=== PATIENT | female | born 1945 | race Asian ===

== ENCOUNTER 2017-03-23 19:17 | Inpatient (IN) | payer MEDICARE, OTHER ==
[~2017-03-23] VITALS: Ht 162.6 cm; Wt 104.3 kg
[~2017-03-23 19:17] MED LIST: AMIODARONE HCL200 MG ORAL; ASPIRIN EC81 MG ORAL; CARVEDILOL6.25 MG ORAL; CELEBREX200 MG ORAL; COREG3.125 MG ORAL; COZAAR50 MG ORAL; CRESTOR10 M2 ORAL; DOXAZOSIN MESYLA4 MG ORAL; ISOSORBIDE MONO30 M1 PO; JANUVIA25 MG ORAL; KEFLEX500 MG ORAL; LASIX40 MG ORAL; LEVOTHYROXINE100 MCG ORAL; LEVOTHYROXINE112 MCG ORAL; NEXIUM40 MG ORAL; NORVASC10 MG ORAL; NORVASC5 MG ORAL; OMEPRAZOLE20 M2 ORAL; PLAVIX75 MG ORAL; RENA-VITE TABL0.8 M1 PO; SINGULAIR10 MG ORAL; TRAMADOL HCL50 MG ORAL
[2017-03-24] MEDS ORDERED: Nitroglycerin Subl 0.4mg tab SL PRN (00:30)
[2017-03-24 00:53] VITALS: BP 144/62
[2017-03-24 04:30] VITALS: BP 149/69
[2017-03-24] MEDS: sitaGLIPtin 25mg tab ORAL SCH (06:20)
[2017-03-24] MEDS: Calcium Acetate 667mg Tab ORAL SCH ×3 (06:20→17:20)
[2017-03-24] MEDS: NovoLOG Insulin Flexpen SUBQ SCH ×4 (06:21→21:00)
[2017-03-24 08:00] VITALS: BP 152/60
[2017-03-24 08:13] LABS: BASOPHILS % (AUTO) 1.7 % (0.0-2.0); EOSINOPHILS % (AUTO) 3.9 % (0.0-3.0); HEMATOCRIT 32.4 % (37.0-47.0); HEMOGLOBIN 10.4 G/DL (12.0-16.0); LYMPHOCYTES % (AUTO) 19.2 % (20.0-45.0); MEAN CORPUSCULAR VOLUME 104 FL (80-99); MONOCYTES % (AUTO) 11.8 % (1.0-10.0); NEUTROPHILS % (AUTO) 63.4 % (45.0-75.0); PLATELET COUNT 139 K/UL (150-450); RED BLOOD COUNT 3.12 M/UL (4.20-5.40); RED CELL DISTRIBUTION WIDTH 14.1 % (11.6-14.8); WHITE BLOOD COUNT 6.6 K/UL (4.8-10.8)
[2017-03-24] MEDS: Aspirin Baby 81mg ORAL SCH (08:28)
[2017-03-24] MEDS: Amiodarone 200mg tab ORAL SCH ×2 (08:28→20:39)
[2017-03-24] MEDS ORDERED: Pantoprazole Inj IVP SCH (09:00)
[2017-03-24] MEDS ORDERED: Doxazosin 4mg tab ORAL SCH (09:00)
[2017-03-24 09:10] LABS: ANION GAP 14 mmol/L (5-15); BLOOD UREA NITROGEN 42 mg/dL (7-18); CALCIUM 8.8 MG/DL (8.5-10.1); CARBON DIOXIDE 24 MMOL/L (21-32); CHLORIDE 101 MMOL/L (98-107); CREATININE 7.7 MG/DL (0.55-1.30); PHOSPHORUS 3.7 MG/DL (2.5-4.9); POTASSIUM 4.7 MMOL/L (3.5-5.1); SODIUM 139 MMOL/L (136-145)
[2017-03-24] MEDS: Heparin 5000 units/ml inj SUBQ SCH ×2 (09:18→20:47)
[2017-03-24 11:42] VITALS: BP 140/56
--- NOTE | 2017-03-24 12:48 | Consultation ---
History of Present Illness General Date patient seen: Mar 24, 2017 Chief Complaint: dypsnea Referring physician: Dr. Poe Reason for Consultation: inpatient managemnt Present Illness HPI 71 year old female with hx of ESRF on HD, DM type 2 HTN, Hypothyroid was taken [facility] with CC of GLF at home, She had some chest pain and shortness of breath prior to fall, Her HD was due yesterday. She was hyperkalemic and bradycardic. After initial treatment she is transferred to [facility] for further treatment. She is awake now, doesn't seem to be in any discomfort. Allergies: Coded Allergies: No Known Allergies (Unverified , 12/11/14) Medication History Scheduled Amiodarone Hcl* (Cordarone*), 200 MG ORAL DAILY, (Reported) Amlodipine Besylate (Norvasc), 5 MG ORAL DAILY, (Reported) Aspirin Ec* (Aspirin Ec*), 81 MG ORAL DAILY, (Reported) Carvedilol (Coreg), 12.5 MG ORAL EVERY 12 HOURS Celecoxib* (Celebrex*), 200 MG ORAL DAILY, (Reported) Clopidogrel Bisulfate* (Plavix*), 75 MG ORAL DAILY, (Reported) Doxazosin Mesylate* (Doxazosin Mesylate*), 4 MG ORAL DAILY, (Reported) Esomeprazole Magnesium (Nexium), 40 MG ORAL DAILY, (Reported) Levothyroxine Sodium* (Levothyroxine Sodium*), 100 MCG ORAL DAILY, (Reported) Montelukast Sodium* (Singulair*), 10 MG ORAL DAILY, (Reported) Omeprazole (Omeprazole), 20 MG ORAL DAILY, (Reported) Rosuvastatin Calcium* (Crestor*), 10 MG ORAL DAILY, (Reported) Sitagliptin* (Januvia*), 25 MG ORAL DAILY, (Reported) Discontinued Medications Amlodipine Besylate (Norvasc), 10 MG ORAL DAILY Discontinued Reason: Pt stopped taking med Cephalexin* (Keflex*), 500 MG ORAL EVERY 6 HOURS, (Reported) Discontinued Reason: Pt stopped taking med Folic Acid/Vitamin B Comp W-C (Bethany-Karolyn Tablet), 0.8 MG PO, (Reported) Discontinued Reason: Pt stopped taking med Furosemide* (Lasix*), 40 MG ORAL DAILY, (Reported) Discontinued Reason: Pt stopped taking med Isosorbide Mononitrate (Isosorbide Mononitrate Er), 30 MG PO, (Reported) Discontinued Reason: Pt stopped taking med Levothyroxine Sodium* (Levothyroxine Sodium*), 112 MCG ORAL DAILY@0730 Discontinued Reason: Pt stopped taking med Losartan Potassium* (Cozaar*), 50 MG ORAL DAILY Discontinued Reason: Pt stopped taking med Tramadol Hcl* (Ultram*), 50 MG ORAL Q6H PRN for For Pain, (Reported) Discontinued Reason: Pt stopped taking med Patient History Healthcare decision maker Resuscitation status Full Code Advanced Directive on File Past Medical/Surgical History Past Medical/Surgical History: (1) Hypothyroidism (2) ESRD (end stage renal disease) on dialysis Review of Systems Constitutional: Reports: fever, malaise Respiratory: Reports: shortness of breath, ASKEW All Other Systems: negative except mentioned in HPI Physical Exam General Appearance: WD/WN, alert Lines, tubes and drains: peripheral, trach HEENT: atraumatic, mucous membranes moist Neck: non-tender, normal alignment Respiratory/Chest: chest wall non-tender, lungs clear Breasts: no masses Cardiovascular/Chest: normal peripheral pulses Abdomen: normal bowel sounds, non tender Genitourinary/Rectal: normal genital exam Extremities: normal range of motion Skin Exam: normal pigmentation 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 Last 24 Hour Vital Signs Date Time Temp Pulse Resp B/P (MAP) Pulse Ox O2 Delivery O2 Flow Rate FiO2 03/24/17 11:42 96.9 62 18 140/56 93 Room Air 03/24/17 08:28 58 152/60 03/24/17 08:00 61 03/24/17 08:00 96.7 58 18 152/60 94 Room Air 03/24/17 04:30 97.9 63 20 149/69 98 Room Air 03/24/17 04:00 62 03/24/17 00:53 97.7 65 20 144/62 97 Room Air 03/24/17 00:13 62 Intake and Output 03/23/17 03/24/17 19:00 07:00 Intake Total 200 ml Balance 200 ml Intake Oral 200 ml Laboratory Tests Test 03/24/17 06:50 White Blood Count 6.6 K/UL (4.8-10.8) Red Blood Count 3.12 M/UL (4.20-5.40) L Hemoglobin 10.4 G/DL (12.0-16.0) L Hematocrit 32.4 % (37.0-47.0) L Mean Corpuscular Volume 104 FL (80-99) H Mean Corpuscular Hemoglobin 33.3 PG (27.0-31.0) H Mean Corpuscular Hemoglobin Concent 32.0 G/DL (32.0-36.0) Red Cell Distribution Width 14.1 % (11.6-14.8) Platelet Count 139 K/UL (150-450) L Mean Platelet Volume 7.8 FL (6.5-10.1) Neutrophils (%) (Auto) 63.4 % (45.0-75.0) Lymphocytes (%) (Auto) 19.2 % (20.0-45.0) L Monocytes (%) (Auto) 11.8 % (1.0-10.0) H Eosinophils (%) (Auto) 3.9 % (0.0-3.0) H Basophils (%) (Auto) 1.7 % (0.0-2.0) Sodium Level 139 MMOL/L (136-145) Potassium Level 4.7 MMOL/L (3.5-5.1) Chloride Level 101 MMOL/L (98-107) Carbon Dioxide Level 24 MMOL/L (21-32) Anion Gap 14 mmol/L (5-15) Blood Urea Nitrogen 42 mg/dL (7-18) H Creatinine 7.7 MG/DL (0.55-1.30) H Estimat Glomerular Filtration Rate mL/min (>60) Glucose Level 188 MG/DL (74-106) H Calcium Level 8.8 MG/DL (8.5-10.1) Phosphorus Level 3.7 MG/DL (2.5-4.9) Magnesium Level 2.1 MG/DL (1.8-2.4) Height (Feet): 5 Height (Inches): 4.00 Weight (Pounds): 230 Medications Current Medications Medications (Trade) Dose Ordered Sig/Angelo Route PRN Reason Start Time Stop Time Status Last Admin Dose Admin Acetaminophen (Tylenol) 650 mg Q4H PRN ORAL Mild Pain/Temp > 100.5 03/24/17 00:30 04/23/17 00:29 Amiodarone HCl (Cordarone) 100 mg EVERY 12 HOURS ORAL 03/24/17 09:00 04/23/17 08:59 03/24/17 08:28 Amlodipine Besylate (Norvasc) 5 mg DAILY ORAL 03/24/17 09:00 04/23/17 08:59 03/24/17 08:28 Aspirin (ASA) 81 mg DAILY ORAL 03/24/17 09:00 04/23/17 08:59 03/24/17 08:28 Calcium Acetate (Phoslo) 667 mg TIAC ORAL 03/24/17 06:30 04/23/17 06:29 03/24/17 11:39 Clopidogrel Bisulfate (Plavix) 75 mg DAILY ORAL 03/24/17 09:00 04/23/17 08:59 03/24/17 08:28 Dextrose (Dextrose 50%) STAT PRN IV Hypoglycemia 03/24/17 00:30 04/23/17 00:29 Doxazosin Mesylate (Cardura) 4 mg DAILY ORAL 03/24/17 09:00 04/23/17 08:59 03/24/17 08:28 Heparin Sodium (Porcine) (Heparin 5000 units/ml) 5,000 units EVERY 12 HOURS SUBQ 03/24/17 09:00 04/23/17 08:59 03/24/17 09:18 Insulin Aspart (NovoLOG) BEFORE MEALS AND HS SUBQ 03/24/17 06:30 04/23/17 06:29 03/24/17 06:21 Levothyroxine Sodium (Synthroid) 100 mcg DAILY@0630 ORAL 03/24/17 06:30 04/23/17 06:29 03/24/17 06:20 Lidocaine (Lidoderm 5% PATCH) 1 patch Q12HR TDERMAL 03/24/17 09:00 04/23/17 08:59 03/24/17 08:29 Montelukast Sodium (Singulair) 10 mg QPM ORAL 03/24/17 16:30 04/23/17 16:29 Nitroglycerin (Ntg) 0.4 mg Q5M PRN SL Prn Chest Pain 03/24/17 00:30 04/23/17 00:29 Ondansetron HCl (Zofran) 4 mg Q4H PRN IVP Nausea & Vomiting 03/24/17 00:30 04/23/17 00:29 Pantoprazole (Protonix) 40 mg DAILY ORAL 03/24/17 09:00 04/23/17 08:59 03/24/17 08:28 Sevelamer Carbonate (Renvela) 800 mg TID@0630,1130,1630 ORAL 03/24/17 06:30 04/23/17 06:29 03/24/17 11:39 Sitagliptin Phosphate (Januvia) 25 mg ACBREAKFAST ORAL 03/24/17 06:30 04/23/17 06:29 03/24/17 06:20 Assessment/Plan Problem List: (1) Bradycardia ICD Codes: R00.1 - Bradycardia, unspecified SNOMED: 04123132 (2) Hyperkalemia ICD Codes: E87.5 - Hyperkalemia SNOMED: 38240718 (3) CHF exacerbation ICD Codes: I50.9 - Heart failure, unspecified SNOMED: 84069636 (4) ESRD (end stage renal disease) on dialysis ICD Codes: N18.6 - End stage renal disease; Z99.2 - Dependence on renal dialysis SNOMED: 608499533 (5) Hypothyroidism ICD Codes: E03.9 - Hypothyroidism, unspecified SNOMED: 91774414 Assessment/Plan respiratory treatment titrate fio2 check electrolytes Nephro evaluation check T3, T4 cxr now echo cardiac evaluation LEONARDO AARON Mar 24, 2017 12:48
--- NOTE | 2017-03-24 14:44 | Consultation ---
Consult Note Consult Note ASKED TO EVAL FOR DIALYSIS TREATMENT- transfered after dialysed in [place] for high K and bradycardia ESRD on HD for 2 years Tue [place] Sat Has left chest permacath poor historian patient examined- data reviewed history via Lithuanian translater . Assessment/Plan Following problems resolved after HD at [place] - Bradycardia - Hyperkalemia - CHF exacerbation Other Conditions: - ESRD (end stage renal disease) on dialysis - Hypothyroidism - Obese - DM - HTN - Anemia - PAF Assessment/Plan respiratory treatment titrate fio2 check electrolytes HD as needed cxr echo cardiac evaluation per orders KEKE ESPAÑA Mar 24, 2017 14:44
--- NOTE | 2017-03-24 14:56 | Cardiology Report ---
APPROVED REPORT EXAM: Two-dimensional and M-mode echocardiogram with Doppler and color Doppler. INDICATION Bradycardia M-Mode DIMENSIONS IVSd1.2 (0.7-1.1cm)Left Atrium (MM)5.1 (1.6-4.0cm) LVDd5.0 (3.5-5.6cm)Aortic Root2.7 (2.0-3.7cm) PWd1.1 (0.7-1.1cm)Aortic Cusp Exc.1.3 (1.5-2.0cm) LVDs2.9 (2.5-4.0cm) PWs1.5 cm Technically difficult study due to poor acoustical windows. Normal left ventricular chamber size, systolic function and wall motion. Left ventricular ejection fraction estimated to be 60-65%. No evidence of left ventricular hypertrophy. No evidence of pericardial or pleural effusion. Right cardiac chamber sizes are within normal limits. Mild left atrial enlargement by 2D. Focal aortic valve sclerosis with adequate cusp excursion. Thickened mitral valve leaflets with normal excursion. Mild mitral annulus and aortic root calcification. Pulmonic valve not well visualized. Normal tricuspid valve structure. IVC is normal in size and collapsible with respiration. A color flow and spectral Doppler study was performed and revealed: Moderate aortic regurgitation. Peak aortic valve gradient of 35mmHg and a mean of 21mmHg. Aortic valve area 1.9 cm2 calculated by continuity equation. Trace mitral regurgitation. Normal mitral diastolic function. Mild tricuspid regurgitation. Tricuspid systolic velocities suggests peak right ventricular systolic pressure of 40mmHg Consistent with mild pulmonary hypertension.
[2017-03-24 15:41] VITALS: BP 135/60
--- NOTE | 2017-03-24 15:44 | Diagnostic Imaging Report ---
Indication: Pain Technique: XRAY Chest 1v Comparison: 12/11/2014 Findings: Left-sided tunneled dialysis catheter has its tip in the region of the right atrium. Left sided vascular stent again noted. Stable cardiomegaly. Mild central pulmonary vascular congestion. There is no definite focal airspace consolidation. No pleural effusion or pneumothorax. No acute bony lesion seen. Impression: Cardiomegaly with mild central pulmonary vascular congestion. No definite focal airspace consolidation. Tunneled dialysis catheter in place.
[2017-03-24] MEDS: Docusate 100mg cap ORAL SCH (17:20)
[2017-03-24] MEDS: Montelukast 10mg tablet ORAL SCH (17:20)
[2017-03-24 20:00] VITALS: BP 148/54
[2017-03-24] MEDS: HydrALAZINE 25mg tab ORAL SCH (20:42)
[2017-03-24] MEDS: Atorvastatin 20mg tab ORAL SCH (20:50)
[2017-03-25] VITALS (8 sets, daily range): BP systolic 117–182; BP diastolic 51–75
--- NOTE | 2017-03-25 00:45 | History and Physical Report ---
DATE OF ADMISSION: 03/23/2017 CHIEF COMPLAINT: The patient is a 71-year-old female who presents with chief complaint of fall injury and chest pain. HISTORY OF PRESENT ILLNESS: The patient lives alone. Apparently, the patient was trying to get out of bed yesterday, 03/23/2017. The patient fell to the floor. The patient struck her head. The patient herself is Swedish speaking. Much of the history and physical is obtained from the patient's chart and the patient's daughter, Norma over the telephone. According to the patient, she was getting out of bed yesterday, 03/23/2017. The patient fell to the floor. The patient denies chest pain. The patient states she struck her head. The patient initially presented to [facility] emergency room. The patient is transferred to [facility] for insurance purposes. The patient admitted for chest pain to rule out acute coronary syndrome. PAST MEDICAL HISTORY: Significant for 1. End-stage renal disease, on hemodialysis every Wednesday, , and Wednesday. 2. Diabetes type 2. 3. Hypertension. 4. Anemia of chronic renal disease. 5. Hypothyroidism. 6. Secondary hyperparathyroidism. 7. Atrial fibrillation. 8. History of cerebrovascular disease. PAST SURGICAL HISTORY: Significant for right arteriovenous graft placement. CURRENT MEDICATIONS: 1. Amiodarone 200 mg one tablet p.o. daily. 2. Amlodipine 5 mg p.o. daily. 3. Enteric-coated aspirin 81 mg p.o. daily. 4. Coreg 3.125 mg p.o. twice daily. 5. Celebrex 200 mg p.o. daily. 6. Plavix 75 mg p.o. daily. 7. Doxazosin 4 mg p.o. daily. 8. Nexium 40 mg p.o. daily. 9. Levoxyl 100 mcg p.o. daily. 10. Singulair 10 mg p.o. daily. 11. Omeprazole 20 mg p.o. daily. 12. Crestor 10 mg p.o. daily. 13. Januvia 25 mg p.o. daily. ALLERGIES: No known drug allergies. SOCIAL HISTORY: The patient is a . The patient lives alone. The patient denies tobacco or alcohol use. REVIEW OF SYSTEMS: CONSTITUTIONAL: Significant for denies weight loss or weight gain. The patient denies fevers or chills. HEENT: The patient complains of posterior head pain secondary to fall. The patient denies headache. CARDIOVASCULAR: The patient denies palpitations. The patient complains of chest pain as above. ABDOMEN: The patient denies nausea, vomiting, diarrhea, or constipation. GENITOURINARY: The patient denies dysuria or increased frequency of urination. NEUROMUSCULAR: The patient denies seizures or generalized weakness. PHYSICAL EXAMINATION: GENERAL: The patient is well-developed and well-nourished female, in no apparent distress. VITAL SIGNS: Temperature 96.7 degrees, respirations 18, pulse 58, and blood pressure 152/60. HEENT: Eyes, pupils equal and responsive to light and accommodation. Extraocular movements are intact. NECK: Supple without lymphadenopathy. CHEST: Lungs are clear to auscultation bilaterally without wheezes rales. CARDIOVASCULAR: Regular rate. S1 and S2 are normal without murmurs, rubs, or gallops. ABDOMEN: Soft, nontender, and nondistended. Positive bowel sounds. No evidence of hepatosplenomegaly. Currently, no rebound or guarding noted. EXTREMITIES: Negative for clubbing, cyanosis, or edema. RECTAL/GENITAL: Refused. NEUROLOGIC: Cranial nerves II through XII are grossly intact without focal deficits. Motor strength is 5/5 bilaterally. Deep tendon reflexes are 2+ plantar. LABORATORY AND DIAGNOSTIC DATA: A CT scan of the head from [place] revealed chronic infarct of the right frontal and parietal lobes. Otherwise, no acute hemorrhage or infarct. WBC 6.6, hemoglobin 10.4, hematocrit 32.4, and platelets 139,000. Sodium 139, potassium 4.7, chloride 101, CO2 24, BUN 42, creatinine 7.7 and glucose 188. ASSESSMENT: This is a 71-year-old female 1. Syncopal episode. 2. Chest pain. 3. End-stage renal disease. 4. Diabetes type 2. 5. Hypertension. 6. Anemia of chronic renal disease. 7. Hypothyroidism. 8. Hyperparathyroidism. 9. Atrial fibrillation. 10. Cerebrovascular disease. TREATMENT: 1. Syncopal episode/chest pain. A Cardiology consultation will be obtained with Dr. Gordo Lima. The patient is currently admitted to the telemetry unit. Serial troponin levels will be performed. 2. End-stage renal disease. The patient's last dialysis was 03/23/2017. A Nephrology consultation has been obtained with Dr. Laura. 3. Diabetes type 2. The patient has been placed on a regular insulin sliding scale. Continue Januvia as above. 4. Hypertension. Continue amlodipine and hydralazine as above. 5. Anemia of chronic renal disease. 6. Hypothyroidism. Continue Levoxyl as above. 7. Atrial fibrillation. As above Cardiology consultation will be obtained with Dr. Gordo Lima. 8. Cerebrovascular disease status post cerebrovascular accident. Moody Poe M.D. DR: SHELLY JOB#: [id number] CC:
[2017-03-25] MEDS: sitaGLIPtin 25mg tab ORAL SCH (06:06)
[2017-03-25] MEDS: HydrALAZINE 25mg tab ORAL SCH ×4 (06:06→22:00)
[2017-03-25] MEDS: Calcium Acetate 667mg Tab ORAL SCH ×3 (06:06→16:26)
[2017-03-25] MEDS: NovoLOG Insulin Flexpen SUBQ SCH ×4 (06:10→20:56)
[2017-03-25 08:32] LABS: EOSINOPHILS % (AUTO) 4.3 % (0.0-3.0); HEMATOCRIT 32.9 % (37.0-47.0); HEMOGLOBIN 10.7 G/DL (12.0-16.0); LYMPHOCYTES % (AUTO) 23.7 % (20.0-45.0); MEAN CORPUSCULAR VOLUME 103 FL (80-99); MONOCYTES % (AUTO) 9.8 % (1.0-10.0); NEUTROPHILS % (AUTO) 61.2 % (45.0-75.0); PLATELET COUNT 141 K/UL (150-450); RED BLOOD COUNT 3.21 M/UL (4.20-5.40); RED CELL DISTRIBUTION WIDTH 13.2 % (11.6-14.8)
[2017-03-25] MEDS: Docusate 100mg cap ORAL SCH ×3 (08:50→18:02)
[2017-03-25] MEDS: Pancrease Cap ORAL SCH ×3 (08:50→18:02)
[2017-03-25] MEDS: Aspirin Baby 81mg ORAL SCH (08:50)
[2017-03-25] MEDS: Amiodarone 200mg tab ORAL SCH (08:50)
[2017-03-25] MEDS: Heparin 5000 units/ml inj SUBQ SCH ×2 (08:52→20:51)
[2017-03-25 08:57] LABS: % IRON SATURATION 26 % (15-50); IRON 47 ug/dL (50-175); TOTAL IRON BINDING CAPACITY 183 ug/dL (250-450)
[2017-03-25 09:26] LABS: ALANINE AMINOTRANSFERASE 19 U/L (12-78); ALBUMIN/GLOBULIN RATIO 0.8 (1.0-2.7); ALKALINE PHOSPHATASE 139 U/L (46-116); ANION GAP 11 mmol/L (5-15); ASPARTATE AMINO TRANSFERASE 16 U/L (15-37); BILIRUBIN,TOTAL 0.3 MG/DL (0.2-1.0); BLOOD UREA NITROGEN 66 mg/dL (7-18); CALCIUM 8.7 MG/DL (8.5-10.1); CARBON DIOXIDE 26 MMOL/L (21-32); CHLORIDE 100 MMOL/L (98-107); CHOLESTEROL 162 MG/DL (< 200); CREATININE 9.9 MG/DL (0.55-1.30); FERRITIN 2107 NG/ML (8-388); HDL CHOLESTEROL 46 MG/DL (40-60); PHOSPHORUS 3.7 MG/DL (2.5-4.9); POTASSIUM 4.7 MMOL/L (3.5-5.1); SODIUM 137 MMOL/L (136-145); TRIGLYCERIDES 183 MG/DL (30-150)
--- NOTE | 2017-03-25 10:49 | Nephrology Progress Note ---
Assessment/Plan Problem List: (1) ESRD (end stage renal disease) on dialysis (2) Hyperkalemia (3) Bradycardia (4) Hypothyroidism Assessment - Bradycardia - Hyperkalemia - CHF exacerbation Other Conditions: - ESRD (end stage renal disease) on dialysis - Hypothyroidism - Obese - DM - HTN - Anemia - PAF Plan Assessment/Plan respiratory treatment titrate fio2 check electrolytes HD today cxr echo cardiac evaluation per orders Subjective ROS Limited/Unobtainable: No Constitutional: Reports: malaise Objective Objective Last 24 Hour Vital Signs Date Time Temp Pulse Resp B/P (MAP) Pulse Ox O2 Delivery O2 Flow Rate FiO2 03/25/17 08:43 141/67 03/25/17 08:43 64 141/67 03/25/17 08:00 61 03/25/17 08:00 97.3 64 18 141/67 97 Room Air 03/25/17 07:10 97.3 03/25/17 06:06 158/72 03/25/17 04:00 65 03/25/17 04:00 97.3 64 16 161/75 95 03/25/17 00:00 64 03/25/17 00:00 97.5 66 18 157/62 95 03/24/17 20:49 148/54 03/24/17 20:42 148/54 03/24/17 20:00 68 03/24/17 20:00 97.7 73 18 148/54 95 03/24/17 16:00 65 03/24/17 15:41 97.2 63 18 135/60 96 Room Air 03/24/17 12:00 59 03/24/17 11:42 96.9 62 18 140/56 93 Room Air Intake and Output 03/24/17 03/25/17 19:00 07:00 Intake Total 610 ml Balance 610 ml Intake Oral 610 ml # Voids 2 # Bowel Movements 1 Laboratory Tests 03/25/17 08:10: White Blood Count 7.0, Red Blood Count 3.21L, Hemoglobin 10.7L, Hematocrit 32.9L , Mean Corpuscular Volume 103H, Mean Corpuscular Hemoglobin 33.5H, Mean Corpuscular Hemoglobin Concent 32.6, Red Cell Distribution Width 13.2, Platelet Count 141L, Mean Platelet Volume 7.8, Neutrophils (%) (Auto) 61.2, Lymphocytes ( %) (Auto) 23.7, Monocytes (%) (Auto) 9.8, Eosinophils (%) (Auto) 4.3H, Basophils (%) (Auto) 1.0, Sodium Level 137, Potassium Level 4.7, Chloride Level 100, Carbon Dioxide Level 26, Anion Gap 11, Blood Urea Nitrogen 66H, Creatinine 9.9H, Estimat Glomerular Filtration Rate , Glucose Level 199H, Hemoglobin A1c 6.7H, Uric Acid 6.5, Calcium Level 8.7, Phosphorus Level 3.7, Magnesium Level 2.0, Iron Level 47L, Total Iron Binding Capacity 183L, Percent Iron Saturation 26, Unsaturated Iron Binding 136, Ferritin 2107H, Total Bilirubin 0.3, Aspartate Amino Transf (AST/SGOT) 16, Alanine Aminotransferase (ALT/SGPT) 19, Alkaline Phosphatase 139H, Troponin I 0.002, C-Reactive Protein, Quantitative 0.6, Pro-B-Type Natriuretic Peptide 85723D, Total Protein 6.9, Albumin 3.0L, Globulin 3.9, Albumin/Globulin Ratio 0.8L, Triglycerides Level 183H, Cholesterol Level 162, LDL Cholesterol 85, HDL Cholesterol 46, Cholesterol/HDL Ratio 3.5, Vitamin B12 Level 677, Folate 14.5, Thyroid Stimulating Hormone (TSH ) 16.572H Height (Feet): 5 Height (Inches): 4.00 Weight (Pounds): 230 General Appearance: no apparent distress Cardiovascular: normal rate Respiratory/Chest: decreased breath sounds Abdomen: soft KEKE ESPAÑA Mar 25, 2017 10:49
--- NOTE | 2017-03-25 12:16 | Diagnostic Imaging Report ---
Indication: Syncope Technique: The head was imaged in a 1.5 Hetal magnet. Sequences obtained include sagittal and axial T1 FLAIR, axial T2 fast spin echo with fat saturation, axial T2 FLAIR, diffusion and ADC map. Comparison: None Findings: There is moderate prominence of the sulci, ventricles, and basal cisterns consistent with atrophy. Moderate, nonspecific T2 hyperintensity noted within white matter. This may be due to chronic small vessel disease. There is asymmetric encephalomalacia noted in the right frontal and temporal lobe likely postischemic. Ex vacuo dilatation of the right lateral ventricle noted. There is no restricted diffusion. Shirley-white differentiation is normal. There is no mass effect, midline shift, edema, or hemorrhage. There are no abnormal extra-axial or intra-axial fluid collections. The corpus callosum and sella are unremarkable. The brainstem and cerebellum are unremarkable. Bone marrow signal within the visualized osseous structures appears age appropriate. Fluid T2 hyperintense signal noted within both mastoid air cells. Mucosal thickening in the right maxillary sinus demonstrated. Impression: No acute intracranial findings. Old subcortical right frontal temporal infarct. Moderate atrophy and evidence of chronic small vessel disease involving white matter tracts. Sinusitis. Bilateral mastoiditis.
[2017-03-25] MEDS: Miralax 17gm pkt ORAL PRN (13:25)
--- NOTE | 2017-03-25 15:09 | Pulmonology Progress Note ---
Assessment/Plan Problems: (1) Bradycardia (2) Hyperkalemia (3) CHF exacerbation (4) ESRD (end stage renal disease) on dialysis (5) Hypothyroidism Assessment/Plan hold Norvasc and Amiodarone Cardio to see, Dr. Geronimo aware HD by development mechanic keep in Telemetry watch BP Subjective ROS Limited/Unobtainable: No Constitutional: Reports: no symptoms HEENT: Repors: no symptoms Respiratory: Reports: no symptoms Allergies: Coded Allergies: No Known Allergies (Unverified , 12/11/14) Objective Last 24 Hour Vital Signs Date Time Temp Pulse Resp B/P (MAP) Pulse Ox O2 Delivery O2 Flow Rate FiO2 03/25/17 14:00 182/71 03/25/17 12:00 97.3 69 18 182/71 99 Room Air 03/25/17 08:43 141/67 03/25/17 08:43 64 141/67 03/25/17 08:00 61 03/25/17 08:00 97.3 64 18 141/67 97 Room Air 03/25/17 07:10 97.3 03/25/17 06:06 158/72 03/25/17 04:00 65 03/25/17 04:00 97.3 64 16 161/75 95 03/25/17 00:00 64 03/25/17 00:00 97.5 66 18 157/62 95 03/24/17 20:49 148/54 03/24/17 20:42 148/54 03/24/17 20:00 68 03/24/17 20:00 97.7 73 18 148/54 95 03/24/17 16:00 65 03/24/17 15:41 97.2 63 18 135/60 96 Room Air Intake and Output 03/24/17 03/25/17 19:00 07:00 Intake Total 610 ml Balance 610 ml Intake Oral 610 ml # Voids 2 # Bowel Movements 1 General Appearance: WD/WN HEENT: normocephalic, atraumatic Respiratory/Chest: chest wall non-tender, lungs clear Breasts: no masses Cardiovascular: normal peripheral pulses Abdomen: normal bowel sounds, soft, non tender 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, abnormal gait Laboratory Tests 03/25/17 08:10: White Blood Count 7.0, Red Blood Count 3.21L, Hemoglobin 10.7L, Hematocrit 32.9L , Mean Corpuscular Volume 103H, Mean Corpuscular Hemoglobin 33.5H, Mean Corpuscular Hemoglobin Concent 32.6, Red Cell Distribution Width 13.2, Platelet Count 141L, Mean Platelet Volume 7.8, Neutrophils (%) (Auto) 61.2, Lymphocytes ( %) (Auto) 23.7, Monocytes (%) (Auto) 9.8, Eosinophils (%) (Auto) 4.3H, Basophils (%) (Auto) 1.0, Sodium Level 137, Potassium Level 4.7, Chloride Level 100, Carbon Dioxide Level 26, Anion Gap 11, Blood Urea Nitrogen 66H, Creatinine 9.9H, Estimat Glomerular Filtration Rate , Glucose Level 199H, Hemoglobin A1c 6.7H, Uric Acid 6.5, Calcium Level 8.7, Phosphorus Level 3.7, Magnesium Level 2.0, Iron Level 47L, Total Iron Binding Capacity 183L, Percent Iron Saturation 26, Unsaturated Iron Binding 136, Ferritin 2107H, Total Bilirubin 0.3, Aspartate Amino Transf (AST/SGOT) 16, Alanine Aminotransferase (ALT/SGPT) 19, Alkaline Phosphatase 139H, Troponin I 0.002, C-Reactive Protein, Quantitative 0.6, Pro-B-Type Natriuretic Peptide 73552N, Total Protein 6.9, Albumin 3.0L, Globulin 3.9, Albumin/Globulin Ratio 0.8L, Triglycerides Level 183H, Cholesterol Level 162, LDL Cholesterol 85, HDL Cholesterol 46, Cholesterol/HDL Ratio 3.5, Vitamin B12 Level 677, Folate 14.5, Thyroid Stimulating Hormone (TSH ) 16.572H Current Medications Medications (Trade) Dose Ordered Sig/Angelo Route PRN Reason Start Time Stop Time Status Last Admin Dose Admin Acetaminophen (Tylenol) 650 mg Q4H PRN ORAL Mild Pain/Temp > 100.5 03/24/17 00:30 04/23/17 00:29 03/25/17 06:11 Amiodarone HCl (Cordarone) 100 mg EVERY 12 HOURS ORAL 03/24/17 09:00 04/23/17 08:59 03/25/17 08:50 Amlodipine Besylate (Norvasc) 5 mg DAILY ORAL 03/24/17 09:00 04/23/17 08:59 03/24/17 08:28 Amylase/Lipase/ Protease (Pancrease) 4 ea THREE TIMES A DAY ORAL 03/25/17 09:00 04/24/17 08:59 03/25/17 13:23 Aspirin (ASA) 81 mg DAILY ORAL 03/24/17 09:00 04/23/17 08:59 03/25/17 08:50 Atorvastatin Calcium (Lipitor) 20 mg BEDTIME ORAL 03/24/17 21:00 04/23/17 20:59 03/24/17 20:50 Calcium Acetate (Phoslo) 667 mg TIAC ORAL 03/24/17 06:30 04/23/17 06:29 03/25/17 11:48 Clonidine HCl (Catapres Tab) 0.1 mg Q4H PRN ORAL syst bp over 160 03/24/17 15:15 04/23/17 15:14 Clopidogrel Bisulfate (Plavix) 75 mg DAILY ORAL 03/24/17 09:00 04/23/17 08:59 03/25/17 08:50 Dextrose (Dextrose 50%) STAT PRN IV Hypoglycemia 03/24/17 00:30 04/23/17 00:29 Docusate Sodium (Colace) 100 mg TID ORAL 03/24/17 18:00 04/23/17 17:59 03/25/17 13:23 Heparin Sodium (Porcine) (Heparin 5000 units/ml) 5,000 units EVERY 12 HOURS SUBQ 03/24/17 09:00 04/23/17 08:59 03/25/17 08:52 Hydralazine HCl (Apresoline) 25 mg Q8HR ORAL 03/24/17 22:00 04/23/17 21:59 03/25/17 14:00 Insulin Aspart (NovoLOG) BEFORE MEALS AND HS SUBQ 03/24/17 06:30 04/23/17 06:29 03/25/17 11:50 Irbesartan (Avapro) 75 mg Q12HR ORAL 03/24/17 21:00 04/23/17 20:59 03/24/17 20:49 Levothyroxine Sodium (Synthroid) 100 mcg DAILY@0630 ORAL 03/24/17 06:30 04/23/17 06:29 03/25/17 06:06 Lidocaine (Lidoderm 5% PATCH) 1 patch Q12HR TDERMAL 03/24/17 09:00 04/23/17 08:59 03/25/17 08:50 Montelukast Sodium (Singulair) 10 mg QPM ORAL 03/24/17 16:30 04/23/17 16:29 03/24/17 17:20 Nitroglycerin (Ntg) 0.4 mg Q5M PRN SL Prn Chest Pain 03/24/17 00:30 04/23/17 00:29 Ondansetron HCl (Zofran) 4 mg Q4H PRN IVP Nausea & Vomiting 03/24/17 00:30 04/23/17 00:29 Pantoprazole (Protonix) 40 mg DAILY ORAL 03/24/17 09:00 04/23/17 08:59 03/25/17 08:49 Polyethylene Glycol (Miralax) 17 gm DAILY PRN ORAL Constipation 03/25/17 08:00 04/24/17 07:59 03/25/17 13:25 Sevelamer Carbonate (Renvela) 800 mg TID@0630,1130,1630 ORAL 03/24/17 06:30 04/23/17 06:29 03/25/17 11:48 Sitagliptin Phosphate (Januvia) 25 mg ACBREAKFAST ORAL 03/24/17 06:30 04/23/17 06:29 03/25/17 06:06 LEONARDO AARON Mar 25, 2017 15:09
[2017-03-25] MEDS: Montelukast 10mg tablet ORAL SCH (16:26)
--- NOTE | 2017-03-25 18:21 | Internal Med Progress Note ---
Subjective Date of Service: Mar 25, 2017 Physician Name Moody Restrepo Attending Physician Jethro Torre MD Current Medications Medications (Trade) Dose Ordered Sig/Angelo Route PRN Reason Start Time Stop Time Status Last Admin Dose Admin Acetaminophen (Tylenol) 650 mg Q4H PRN ORAL Mild Pain/Temp > 100.5 03/24/17 00:30 04/23/17 00:29 03/25/17 06:11 Amylase/Lipase/ Protease (Pancrease) 4 ea THREE TIMES A DAY ORAL 03/25/17 09:00 04/24/17 08:59 03/25/17 18:02 Aspirin (ASA) 81 mg DAILY ORAL 03/24/17 09:00 04/23/17 08:59 03/25/17 08:50 Atorvastatin Calcium (Lipitor) 20 mg BEDTIME ORAL 03/24/17 21:00 04/23/17 20:59 03/24/17 20:50 Calcium Acetate (Phoslo) 667 mg TIAC ORAL 03/24/17 06:30 04/23/17 06:29 03/25/17 16:26 Clonidine HCl (Catapres Tab) 0.1 mg Q4H PRN ORAL syst bp over 160 03/24/17 15:15 04/23/17 15:14 Clopidogrel Bisulfate (Plavix) 75 mg DAILY ORAL 03/24/17 09:00 04/23/17 08:59 03/25/17 08:50 Dextrose (Dextrose 50%) STAT PRN IV Hypoglycemia 03/24/17 00:30 04/23/17 00:29 Docusate Sodium (Colace) 100 mg TID ORAL 03/24/17 18:00 04/23/17 17:59 03/25/17 18:02 Heparin Sodium (Porcine) (Heparin 5000 units/ml) 5,000 units EVERY 12 HOURS SUBQ 03/24/17 09:00 04/23/17 08:59 03/25/17 08:52 Hydralazine HCl (Apresoline) 25 mg Q8HR ORAL 03/24/17 22:00 04/23/17 21:59 03/25/17 14:00 Insulin Aspart (NovoLOG) BEFORE MEALS AND HS SUBQ 03/24/17 06:30 04/23/17 06:29 03/25/17 16:28 Irbesartan (Avapro) 75 mg Q12HR ORAL 03/24/17 21:00 04/23/17 20:59 03/24/17 20:49 Levothyroxine Sodium (Synthroid) 100 mcg DAILY@0630 ORAL 03/24/17 06:30 04/23/17 06:29 03/25/17 06:06 Lidocaine (Lidoderm 5% PATCH) 1 patch Q12HR TDERMAL 03/24/17 09:00 04/23/17 08:59 03/25/17 08:50 Montelukast Sodium (Singulair) 10 mg QPM ORAL 03/24/17 16:30 04/23/17 16:29 03/25/17 16:26 Nitroglycerin (Ntg) 0.4 mg Q5M PRN SL Prn Chest Pain 03/24/17 00:30 04/23/17 00:29 Ondansetron HCl (Zofran) 4 mg Q4H PRN IVP Nausea & Vomiting 03/24/17 00:30 04/23/17 00:29 Pantoprazole (Protonix) 40 mg DAILY ORAL 03/24/17 09:00 04/23/17 08:59 03/25/17 08:49 Polyethylene Glycol (Miralax) 17 gm DAILY PRN ORAL Constipation 03/25/17 08:00 04/24/17 07:59 03/25/17 13:25 Sevelamer Carbonate (Renvela) 800 mg TID@0630,1130,1630 ORAL 03/24/17 06:30 04/23/17 06:29 03/25/17 16:26 Sitagliptin Phosphate (Januvia) 25 mg ACBREAKFAST ORAL 03/24/17 06:30 04/23/17 06:29 03/25/17 06:06 Allergies: Coded Allergies: No Known Allergies (Unverified , 12/11/14) ROS Limited/Unobtainable: No Constitutional: Reports: no symptoms HEENT: Reports: no symptoms Cardiovascular: Reports: chest pain Respiratory: Reports: no symptoms Gastrointestinal/Abdominal: Reports: no symptoms Genitourinary: Reports: no symptoms Neurologic/Psychiatric: Reports: no symptoms Subjective 71 YO F admitted with chest pain and end stage renal dis. Cover for Int Med-Dr Torre. S/P hemodialysis today. Await cardiology consult. Objective Last Vital Signs Date Time Temp Pulse Resp B/P (MAP) Pulse Ox O2 Delivery O2 Flow Rate FiO2 03/25/17 16:00 52 03/25/17 16:00 97.0 18 149/59 100 Room Air General Appearance: WD/WN, no apparent distress, alert, obese EENT: PERRL/EOMI, normal ENT inspection Neck: non-tender, normal alignment, supple, normal inspection Cardiovascular: normal peripheral pulses, normal rate, regular rhythm, no gallop/murmur, no JVD Respiratory/Chest: chest wall non-tender, lungs clear, normal breath sounds, no respiratory distress, no accessory muscle use Abdomen: normal bowel sounds, non tender, soft, no organomegaly, no mass, abnormal bowel sounds Extremities: normal range of motion 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, no motor/sensory deficits Skin: normal pigmentation, warm/dry Laboratory Tests Test 03/25/17 08:10 White Blood Count 7.0 K/UL (4.8-10.8) Red Blood Count 3.21 M/UL (4.20-5.40) L Hemoglobin 10.7 G/DL (12.0-16.0) L Hematocrit 32.9 % (37.0-47.0) L Mean Corpuscular Volume 103 FL (80-99) H Mean Corpuscular Hemoglobin 33.5 PG (27.0-31.0) H Mean Corpuscular Hemoglobin Concent 32.6 G/DL (32.0-36.0) Red Cell Distribution Width 13.2 % (11.6-14.8) Platelet Count 141 K/UL (150-450) L Mean Platelet Volume 7.8 FL (6.5-10.1) Neutrophils (%) (Auto) 61.2 % (45.0-75.0) Lymphocytes (%) (Auto) 23.7 % (20.0-45.0) Monocytes (%) (Auto) 9.8 % (1.0-10.0) Eosinophils (%) (Auto) 4.3 % (0.0-3.0) H Basophils (%) (Auto) 1.0 % (0.0-2.0) Sodium Level 137 MMOL/L (136-145) Potassium Level 4.7 MMOL/L (3.5-5.1) Chloride Level 100 MMOL/L (98-107) Carbon Dioxide Level 26 MMOL/L (21-32) Anion Gap 11 mmol/L (5-15) Blood Urea Nitrogen 66 mg/dL (7-18) H Creatinine 9.9 MG/DL (0.55-1.30) H Estimat Glomerular Filtration Rate mL/min (>60) Glucose Level 199 MG/DL (74-106) H Hemoglobin A1c 6.7 % (4.3-6.0) H Uric Acid 6.5 MG/DL (2.6-7.2) Calcium Level 8.7 MG/DL (8.5-10.1) Phosphorus Level 3.7 MG/DL (2.5-4.9) Magnesium Level 2.0 MG/DL (1.8-2.4) Iron Level 47 ug/dL (50-175) L Total Iron Binding Capacity 183 ug/dL (250-450) L Percent Iron Saturation 26 % (15-50) Unsaturated Iron Binding 136 ug/dL (112-346) Ferritin 2107 NG/ML (8-388) H Total Bilirubin 0.3 MG/DL (0.2-1.0) Aspartate Amino Transf (AST/SGOT) 16 U/L (15-37) Alanine Aminotransferase (ALT/SGPT) 19 U/L (12-78) Alkaline Phosphatase 139 U/L (46-116) H Troponin I 0.002 ng/mL (0.000-0.056) C-Reactive Protein, Quantitative 0.6 mg/dL (0.00-0.90) Pro-B-Type Natriuretic Peptide 37344 pg/mL (0-125) H Total Protein 6.9 G/DL (6.4-8.2) Albumin 3.0 G/DL (3.4-5.0) L Globulin 3.9 g/dL Albumin/Globulin Ratio 0.8 (1.0-2.7) L Triglycerides Level 183 MG/DL (30-150) H Cholesterol Level 162 MG/DL (< 200) LDL Cholesterol 85 mg/dL (<100) HDL Cholesterol 46 MG/DL (40-60) Cholesterol/HDL Ratio 3.5 (3.3-4.4) Vitamin B12 Level 677 PG/ML (193-986) Folate 14.5 NG/ML (8.6-58.9) Thyroid Stimulating Hormone (TSH) 16.572 uiU/mL (0.358-3.740) Intake and Output 03/24/17 03/25/17 19:00 07:00 Intake Total 610 ml Balance 610 ml Intake Oral 610 ml # Voids 2 # Bowel Movements 1 Assessment/Plan Problem List: (1) Syncope (2) ESRD on hemodialysis Assessment & Plan: see nephrology note. Hemodialysis today 03/25/17 (3) Diabetes mellitus, type II Assessment & Plan: continue novolog sliding scale and januvia. (4) Hypertension Assessment & Plan: Continue hydralazine (5) Anemia of renal disease (6) Secondary hyperparathyroidism (7) Atrial fibrillation Assessment & Plan: Await cardiology consult. Troponin negative. (8) Cerebral vascular disease (9) Hypothyroidism (10) CHF (congestive heart failure) Assessment & Plan: Volume overload. LVEF=60-65%. Await cardiology consult. S /P hemodialysis today Status: not improved MOODY RESTREPO Mar 25, 2017 18:21
[2017-03-25] MEDS: Atorvastatin 20mg tab ORAL SCH (20:57)
--- NOTE | 2017-03-25 21:13 | Cardiology Progress Note ---
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 supposedly run of aflutter at [facility] joanna huang may have recurrent afib [id number] Objective Last 24 Hour Vital Signs Date Time Temp Pulse Resp B/P (MAP) Pulse Ox O2 Delivery O2 Flow Rate FiO2 03/25/17 20:53 98.2 73 18 153/69 96 Room Air 03/25/17 20:50 149/59 03/25/17 16:00 52 03/25/17 16:00 97.0 68 18 149/59 100 Room Air 03/25/17 14:00 182/71 03/25/17 12:00 64 03/25/17 12:00 97.3 69 18 182/71 99 Room Air 03/25/17 08:43 141/67 03/25/17 08:43 64 141/67 03/25/17 08:00 61 03/25/17 08:00 97.3 64 18 141/67 97 Room Air 03/25/17 07:10 97.3 03/25/17 06:06 158/72 03/25/17 04:00 65 03/25/17 04:00 97.3 64 16 161/75 95 03/25/17 00:00 64 03/25/17 00:00 97.5 66 18 157/62 95 Intake and Output 03/24/17 03/25/17 19:00 07:00 Intake Total 610 ml Balance 610 ml Intake Oral 610 ml # Voids 2 # Bowel Movements 1 Laboratory Tests Test 03/25/17 08:10 White Blood Count 7.0 K/UL (4.8-10.8) Red Blood Count 3.21 M/UL (4.20-5.40) L Hemoglobin 10.7 G/DL (12.0-16.0) L Hematocrit 32.9 % (37.0-47.0) L Mean Corpuscular Volume 103 FL (80-99) H Mean Corpuscular Hemoglobin 33.5 PG (27.0-31.0) H Mean Corpuscular Hemoglobin Concent 32.6 G/DL (32.0-36.0) Red Cell Distribution Width 13.2 % (11.6-14.8) Platelet Count 141 K/UL (150-450) L Mean Platelet Volume 7.8 FL (6.5-10.1) Neutrophils (%) (Auto) 61.2 % (45.0-75.0) Lymphocytes (%) (Auto) 23.7 % (20.0-45.0) Monocytes (%) (Auto) 9.8 % (1.0-10.0) Eosinophils (%) (Auto) 4.3 % (0.0-3.0) H Basophils (%) (Auto) 1.0 % (0.0-2.0) Sodium Level 137 MMOL/L (136-145) Potassium Level 4.7 MMOL/L (3.5-5.1) Chloride Level 100 MMOL/L (98-107) Carbon Dioxide Level 26 MMOL/L (21-32) Anion Gap 11 mmol/L (5-15) Blood Urea Nitrogen 66 mg/dL (7-18) H Creatinine 9.9 MG/DL (0.55-1.30) H Estimat Glomerular Filtration Rate mL/min (>60) Glucose Level 199 MG/DL (74-106) H Hemoglobin A1c 6.7 % (4.3-6.0) H Uric Acid 6.5 MG/DL (2.6-7.2) Calcium Level 8.7 MG/DL (8.5-10.1) Phosphorus Level 3.7 MG/DL (2.5-4.9) Magnesium Level 2.0 MG/DL (1.8-2.4) Iron Level 47 ug/dL (50-175) L Total Iron Binding Capacity 183 ug/dL (250-450) L Percent Iron Saturation 26 % (15-50) Unsaturated Iron Binding 136 ug/dL (112-346) Ferritin 2107 NG/ML (8-388) H Total Bilirubin 0.3 MG/DL (0.2-1.0) Aspartate Amino Transf (AST/SGOT) 16 U/L (15-37) Alanine Aminotransferase (ALT/SGPT) 19 U/L (12-78) Alkaline Phosphatase 139 U/L (46-116) H Troponin I 0.002 ng/mL (0.000-0.056) C-Reactive Protein, Quantitative 0.6 mg/dL (0.00-0.90) Pro-B-Type Natriuretic Peptide 39744 pg/mL (0-125) H Total Protein 6.9 G/DL (6.4-8.2) Albumin 3.0 G/DL (3.4-5.0) L Globulin 3.9 g/dL Albumin/Globulin Ratio 0.8 (1.0-2.7) L Triglycerides Level 183 MG/DL (30-150) H Cholesterol Level 162 MG/DL (< 200) LDL Cholesterol 85 mg/dL (<100) HDL Cholesterol 46 MG/DL (40-60) Cholesterol/HDL Ratio 3.5 (3.3-4.4) Vitamin B12 Level 677 PG/ML (193-986) Folate 14.5 NG/ML (8.6-58.9) Thyroid Stimulating Hormone (TSH) 16.572 uiU/mL (0.358-3.740) SHIRLEY KNIGHT Mar 25, 2017 21:13
[2017-03-25] MEDS ORDERED: Cathflo Alteplase 2mg Inj INJ ONE (23:15)
--- NOTE | 2017-03-26 01:45 | Consultation ---
DATE OF CONSULTATION: 03/25/2017 CARDIOLOGY CONSULTATION CONSULTING PHYSICIAN: Bud Geronimo M.D. REFERRING PHYSICIAN: Jethro Torre M.D., and Rocio Recio M.D. REASON FOR REFERRAL: Bradycardia. HISTORY OF PRESENT ILLNESS: This is an elderly Italian female, who apparently initially presented to an outside hospital for chest pain, shortness of breath, and generalized weakness status post fall while on the toilet. Unclear history of loss of consciousness. In the emergency room, the heart rate was in the 30s and 40s, the potassium was 6.2, and an urgent hemodialysis was performed. She was apparently complaining of chest tightness and denied any shortness of breath. No fever, chills, or cough and no distal edema. She gets dialysis. Anyway, she had hyperkalemia and was noted to have bradycardia and the dose of her Coreg was discontinued at the [facility] before she was transferred here apparently and she was subsequently taken off of amiodarone here as well that she takes 100 mg on a daily basis. She was noted to be bradycardic. PAST MEDICAL HISTORY: Difficult to understand, but she apparently has end-stage renal disease, on hemodialysis Wednesday, , and Wednesday. History of stroke, coronary artery disease, history of hypertension, diabetes mellitus, anemia hypothyroidism secondary to hyperparathyroidism, atherosclerotic disease of the aorta, and end-stage renal disease as mentioned. PAST SURGICAL HISTORY: AV fistula. ALLERGIES: None. SOCIAL HISTORY: The patient does not smoke or drink alcoholic beverages. No drug use. REVIEW OF SYSTEMS: Really unable to obtain at the present time. PHYSICAL EXAMINATION: GENERAL: Shows to be obese Italian female, in no respiratory distress. Fully awake and responsive. NECK: Supple. No jugular venous distention. LUNGS: Clear to auscultation and percussion. CARDIAC: Regular rhythm. Bradycardic. ABDOMEN: Soft, nontender. Positive bowel sounds. EXTREMITIES: There is no clubbing or cyanosis nor is there any edema. NEUROLOGIC: She is awake, alert, responsive, and in no respiratory distress. LABORATORY AND DIAGNOSTIC DATA: White count of 7, hemoglobin 10.7, and platelet count of 141,000. Sodium 137, potassium 4.7, chloride 100, bicarbonate 26, BUN 60, creatinine 9.9, and glucose of 99. A1c of 6.7. Iron of 47, TIBC of 183, and 26% saturation. Troponin 0.03. ProBNP of 15,000. Triglycerides 183. TSH was 16.57. Toxicology screen is negative. The patient's electrocardiogram here shows sinus bradycardia with premature atrial complexes, right bundle-branch conduction defect, and really no significant ST-T wave abnormalities. No fascicular block is noted and her telemetry monitoring shows sinus rhythm and sinus bradycardia as well. Her echocardiogram shows ejection fraction of 60% to 65% on preliminary report, moderate aortic regurgitation, peak gradient of 35 and mean gradient of 21, and tricuspid regurgitation with pulmonary systolic pressure of 40. ASSESSMENT AND PLAN: 1. Sinus bradycardia with premature complexes. 2. Possible history of atrial arrhythmias. The patient is on amiodarone therapy. 3. History of end-stage renal disease, on hemodialysis. 4. Diabetes mellitus, type 2. 5. History of hypertension. 6. Hyperkalemia. 7. Anemia. 8. Hypothyroidism. 9. History of cerebrovascular accident. 10. History of atrial fibrillation/flutter. PLAN: Dr. Torre and Dr. Recio, this patient was seen in cardiac consultation. The patient has had some bradycardia, which is likely related to a combination of Coreg and amiodarone, both of which are withheld. Although the Coreg was withheld a few days ago, amiodarone was just withheld today. She does have history of atrial fibrillation. Apparently, she had a run of atrial flutter at [facility]. It is possible that she may require permanent pacemaker implantation for tachy-gina syndrome in the near future. I recommend monitoring on the EKG. The patient's laboratory values are indicative of hypothyroidism, which may well be contributing to the patient's bradycardia. Bud Geronimo M.D. DR: GABRIEL JOB#: [id number] CC:
[2017-03-26 04:13] VITALS: BP 122/62
[2017-03-26] MEDS: Calcium Acetate 667mg Tab ORAL SCH ×3 (05:20→15:43)
[2017-03-26] MEDS: sitaGLIPtin 25mg tab ORAL SCH (05:20)
[2017-03-26] MEDS: NovoLOG Insulin Flexpen SUBQ SCH ×4 (05:22→21:38)
[2017-03-26] MEDS: HydrALAZINE 25mg tab ORAL SCH ×3 (05:27→21:34)
[2017-03-26 08:00] VITALS: BP 162/55
[2017-03-26] MEDS: Docusate 100mg cap ORAL SCH ×3 (08:46→17:29)
[2017-03-26] MEDS: Pancrease Cap ORAL SCH ×3 (08:47→17:29)
[2017-03-26] MEDS: Aspirin Baby 81mg ORAL SCH (08:48)
[2017-03-26] MEDS: Heparin 5000 units/ml inj SUBQ SCH ×2 (08:52→21:36)
[2017-03-26 10:15] LABS: BASOPHILS % (AUTO) 0.9 % (0.0-2.0); EOSINOPHILS % (AUTO) 3.9 % (0.0-3.0); HEMATOCRIT 29.5 % (37.0-47.0); LYMPHOCYTES % (AUTO) 26.7 % (20.0-45.0); MEAN CORPUSCULAR VOLUME 102 FL (80-99); MONOCYTES % (AUTO) 10.1 % (1.0-10.0); NEUTROPHILS % (AUTO) 58.4 % (45.0-75.0); PLATELET COUNT 121 K/UL (150-450); RED BLOOD COUNT 2.89 M/UL (4.20-5.40); WHITE BLOOD COUNT 7.4 K/UL (4.8-10.8)
[2017-03-26 11:30] VITALS: BP 132/75
[2017-03-26 11:30] LABS: ANION GAP 12 mmol/L (5-15); BLOOD UREA NITROGEN 83 mg/dL (7-18); CALCIUM 8.5 MG/DL (8.5-10.1); CARBON DIOXIDE 24 MMOL/L (21-32); CHLORIDE 98 MMOL/L (98-107); CREATININE 11.3 MG/DL (0.55-1.30); POTASSIUM 5.6 MMOL/L (3.5-5.1); SODIUM 134 MMOL/L (136-145)
--- NOTE | 2017-03-26 14:55 | Pulmonology Progress Note ---
Assessment/Plan Problems: (1) Bradycardia (2) Hyperkalemia (3) CHF exacerbation (4) ESRD (end stage renal disease) on dialysis (5) Hypothyroidism Assessment/Plan hold Norvasc and Amiodarone still was bradycardic last night Dr. Geronimo seeing the patient HD by treatment supervisor keep in Telemetry watch BP Subjective ROS Limited/Unobtainable: No Constitutional: Reports: no symptoms HEENT: Repors: no symptoms Respiratory: Reports: no symptoms Allergies: Coded Allergies: No Known Allergies (Unverified , 12/11/14) Objective Last 24 Hour Vital Signs Date Time Temp Pulse Resp B/P (MAP) Pulse Ox O2 Delivery O2 Flow Rate FiO2 03/26/17 14:00 132/75 03/26/17 12:00 57 03/26/17 11:30 Room Air 03/26/17 11:30 97.9 81 20 132/75 Room Air 03/26/17 09:00 162/55 03/26/17 08:00 96.8 76 18 162/55 100 Room Air 03/26/17 08:00 54 03/26/17 05:27 112/47 03/26/17 04:13 98.3 80 18 122/62 95 Room Air 03/26/17 04:00 47 03/26/17 00:00 41 03/25/17 23:30 98.0 100 20 120/55 Room Air 03/25/17 22:30 Room Air 03/25/17 22:00 113/44 03/25/17 21:00 98.2 101 22 117/51 Room Air 03/25/17 20:53 98.2 73 18 153/69 96 Room Air 03/25/17 20:50 149/59 03/25/17 20:00 61 03/25/17 16:00 52 03/25/17 16:00 97.0 68 18 149/59 100 Room Air Intake and Output 03/25/17 03/26/17 19:00 07:00 Intake Total 472 ml Output Total 400 ml Balance 472 ml -400 ml Intake Oral 472 ml Output Urine Total 400 ml Hemodialysis UF 0 ml # Voids 3 # Bowel Movements 1 General Appearance: WD/WN HEENT: normocephalic Respiratory/Chest: chest wall non-tender, lungs clear Breasts: no masses Cardiovascular: normal peripheral pulses, normal rate Abdomen: normal bowel sounds, soft, non tender Extremities: no cyanosis Skin: no rash Neurologic/Psychiatric: edge stitcher II-XII grossly normal Microbiology Date/Time Source Procedure Growth Status 03/24/17 09:20 Nasal Nares Right MRSA Culture - Final NO METHICILLIN RESISTANT STAPH AUREUS... Complete Laboratory Tests 03/26/17 09:50: White Blood Count 7.4, Red Blood Count 2.89L, Hemoglobin 10.0L, Hematocrit 29.5L , Mean Corpuscular Volume 102H, Mean Corpuscular Hemoglobin 34.7H, Mean Corpuscular Hemoglobin Concent 33.9, Red Cell Distribution Width 13.0, Platelet Count 121L, Mean Platelet Volume 7.6, Neutrophils (%) (Auto) 58.4, Lymphocytes ( %) (Auto) 26.7, Monocytes (%) (Auto) 10.1H, Eosinophils (%) (Auto) 3.9H, Basophils (%) (Auto) 0.9, Sodium Level 134L, Potassium Level 5.6H, Chloride Level 98, Carbon Dioxide Level 24, Anion Gap 12, Blood Urea Nitrogen 83H, Creatinine 11.3H, Estimat Glomerular Filtration Rate , Glucose Level 175H, Calcium Level 8.5, Pro-B-Type Natriuretic Peptide [id number] Current Medications Medications (Trade) Dose Ordered Sig/Angelo Route PRN Reason Start Time Stop Time Status Last Admin Dose Admin Acetaminophen (Tylenol) 650 mg Q4H PRN ORAL Mild Pain/Temp > 100.5 03/24/17 00:30 04/23/17 00:29 03/25/17 20:52 Amylase/Lipase/ Protease (Pancrease) 4 ea THREE TIMES A DAY ORAL 03/25/17 09:00 04/24/17 08:59 03/26/17 13:13 Aspirin (ASA) 81 mg DAILY ORAL 03/24/17 09:00 04/23/17 08:59 03/26/17 08:48 Atorvastatin Calcium (Lipitor) 20 mg BEDTIME ORAL 03/24/17 21:00 04/23/17 20:59 03/25/17 20:57 Calcium Acetate (Phoslo) 667 mg TIAC ORAL 03/24/17 06:30 04/23/17 06:29 03/26/17 11:47 Clopidogrel Bisulfate (Plavix) 75 mg DAILY ORAL 03/24/17 09:00 04/23/17 08:59 03/26/17 08:48 Dextrose (Dextrose 50%) STAT PRN IV Hypoglycemia 03/24/17 00:30 04/23/17 00:29 Docusate Sodium (Colace) 100 mg TID ORAL 03/24/17 18:00 04/23/17 17:59 03/26/17 13:06 Heparin Sodium (Porcine) (Heparin 5000 units/ml) 5,000 units EVERY 12 HOURS SUBQ 03/24/17 09:00 04/23/17 08:59 03/26/17 08:52 Hydralazine HCl (Apresoline) 25 mg Q8HR ORAL 03/24/17 22:00 04/23/17 21:59 03/25/17 14:00 Insulin Aspart (NovoLOG) BEFORE MEALS AND HS SUBQ 03/24/17 06:30 04/23/17 06:29 03/26/17 11:54 Irbesartan (Avapro) 75 mg Q12HR ORAL 03/24/17 21:00 04/23/17 20:59 03/25/17 20:50 Levothyroxine Sodium (Synthroid) 100 mcg DAILY@0630 ORAL 03/24/17 06:30 04/23/17 06:29 03/26/17 05:27 Lidocaine (Lidoderm 5% PATCH) 1 patch Q12HR TDERMAL 03/24/17 09:00 04/23/17 08:59 03/26/17 08:49 Montelukast Sodium (Singulair) 10 mg QPM ORAL 03/24/17 16:30 04/23/17 16:29 03/25/17 16:26 Nitroglycerin (Ntg) 0.4 mg Q5M PRN SL Prn Chest Pain 03/24/17 00:30 04/23/17 00:29 Ondansetron HCl (Zofran) 4 mg Q4H PRN IVP Nausea & Vomiting 03/24/17 00:30 04/23/17 00:29 Pantoprazole (Protonix) 40 mg DAILY ORAL 03/24/17 09:00 04/23/17 08:59 03/26/17 08:47 Polyethylene Glycol (Miralax) 17 gm DAILY PRN ORAL Constipation 03/25/17 08:00 04/24/17 07:59 03/25/17 13:25 Sevelamer Carbonate (Renvela) 800 mg TID@0630,1130,1630 ORAL 03/24/17 06:30 04/23/17 06:29 03/26/17 11:47 Sitagliptin Phosphate (Januvia) 25 mg ACBREAKFAST ORAL 03/24/17 06:30 04/23/17 06:29 03/26/17 05:20 LEONARDO AARON Mar 26, 2017 14:55
--- NOTE | 2017-03-26 15:01 | Cardiology Report ---
APPROVED REPORT EKG Measurement Heart [id number] Normal sinus rhythm Right bundle branch block Abnormal ECG
--- NOTE | 2017-03-26 15:19 | Nephrology Progress Note ---
Assessment/Plan Problem List: (1) ESRD (end stage renal disease) on dialysis (2) Hyperkalemia (3) Bradycardia (4) Hypothyroidism Assessment - Bradycardia - Hyperkalemia- K 5.6 - CHF exacerbation Other Conditions: - ESRD (end stage renal disease) on dialysis - Hypothyroidism - Obese - DM - HTN - Anemia - PAF Plan Assessment/Plan respiratory treatment titrate fio2 check electrolytes HD today- was supposed to be done yesterday but had Catheter malfunction cxr : Cardiomegaly with mild central pulmonary vascular congestion. No definite focal airspace consolidation. echo : Left ventricular ejection fraction estimated to be 60-65%. No evidence of left ventricular hypertrophy. cardiac evaluation per orders Subjective ROS Limited/Unobtainable: No Constitutional: Reports: malaise Objective Objective Last 24 Hour Vital Signs Date Time Temp Pulse Resp B/P (MAP) Pulse Ox O2 Delivery O2 Flow Rate FiO2 03/26/17 14:00 132/75 03/26/17 12:00 57 03/26/17 11:30 Room Air 03/26/17 11:30 97.9 81 20 132/75 Room Air 03/26/17 09:00 162/55 03/26/17 08:00 96.8 76 18 162/55 100 Room Air 03/26/17 08:00 54 03/26/17 05:27 112/47 03/26/17 04:13 98.3 80 18 122/62 95 Room Air 03/26/17 04:00 47 03/26/17 00:00 41 03/25/17 23:30 98.0 100 20 120/55 Room Air 03/25/17 22:30 Room Air 03/25/17 22:00 113/44 03/25/17 21:00 98.2 101 22 117/51 Room Air 03/25/17 20:53 98.2 73 18 153/69 96 Room Air 03/25/17 20:50 149/59 03/25/17 20:00 61 03/25/17 16:00 52 03/25/17 16:00 97.0 68 18 149/59 100 Room Air Intake and Output 03/25/17 03/26/17 19:00 07:00 Intake Total 472 ml Output Total 400 ml Balance 472 ml -400 ml Intake Oral 472 ml Output Urine Total 400 ml Hemodialysis UF 0 ml # Voids 3 # Bowel Movements 1 Laboratory Tests 1/12/18 09:50: White Blood Count 7.4, Red Blood Count 2.89L, Hemoglobin 10.0L, Hematocrit 29.5L , Mean Corpuscular Volume 102H, Mean Corpuscular Hemoglobin 34.7H, Mean Corpuscular Hemoglobin Concent 33.9, Red Cell Distribution Width 13.0, Platelet Count 121L, Mean Platelet Volume 7.6, Neutrophils (%) (Auto) 58.4, Lymphocytes ( %) (Auto) 26.7, Monocytes (%) (Auto) 10.1H, Eosinophils (%) (Auto) 3.9H, Basophils (%) (Auto) 0.9, Sodium Level 134L, Potassium Level 5.6H, Chloride Level 98, Carbon Dioxide Level 24, Anion Gap 12, Blood Urea Nitrogen 83H, Creatinine 11.3H, Estimat Glomerular Filtration Rate , Glucose Level 175H, Calcium Level 8.5, Pro-B-Type Natriuretic Peptide 82967N Height (Feet): 5 Height (Inches): 4.00 Weight (Pounds): 230 General Appearance: no apparent distress Cardiovascular: normal rate Respiratory/Chest: decreased breath sounds Objective no change in PE KEKE ESPAÑA Mar 26, 2017 15:18
[2017-03-26 15:30] VITALS: BP 97/50
--- NOTE | 2017-03-26 15:40 | Internal Med Progress Note ---
Subjective Physician Name Jethro Torre Attending Physician Jethro Torre MD Current Medications Medications (Trade) Dose Ordered Sig/Angelo Route PRN Reason Start Time Stop Time Status Last Admin Dose Admin Acetaminophen (Tylenol) 650 mg Q4H PRN ORAL Mild Pain/Temp > 100.5 03/24/17 00:30 04/23/17 00:29 03/25/17 20:52 Amylase/Lipase/ Protease (Pancrease) 4 ea THREE TIMES A DAY ORAL 03/25/17 09:00 04/24/17 08:59 03/26/17 13:13 Aspirin (ASA) 81 mg DAILY ORAL 03/24/17 09:00 04/23/17 08:59 03/26/17 08:48 Atorvastatin Calcium (Lipitor) 20 mg BEDTIME ORAL 03/24/17 21:00 04/23/17 20:59 03/25/17 20:57 Calcium Acetate (Phoslo) 667 mg TIAC ORAL 03/24/17 06:30 04/23/17 06:29 03/26/17 11:47 Clopidogrel Bisulfate (Plavix) 75 mg DAILY ORAL 03/24/17 09:00 04/23/17 08:59 03/26/17 08:48 Dextrose (Dextrose 50%) STAT PRN IV Hypoglycemia 03/24/17 00:30 04/23/17 00:29 Docusate Sodium (Colace) 100 mg TID ORAL 03/24/17 18:00 04/23/17 17:59 03/26/17 13:06 Heparin Sodium (Porcine) (Heparin 5000 units/ml) 5,000 units EVERY 12 HOURS SUBQ 03/24/17 09:00 04/23/17 08:59 03/26/17 08:52 Hydralazine HCl (Apresoline) 25 mg Q8HR ORAL 03/24/17 22:00 04/23/17 21:59 03/25/17 14:00 Insulin Aspart (NovoLOG) BEFORE MEALS AND HS SUBQ 03/24/17 06:30 04/23/17 06:29 03/26/17 11:54 Irbesartan (Avapro) 75 mg Q12HR ORAL 03/24/17 21:00 04/23/17 20:59 03/25/17 20:50 Levothyroxine Sodium (Synthroid) 100 mcg DAILY@0630 ORAL 03/24/17 06:30 04/23/17 06:29 03/26/17 05:27 Lidocaine (Lidoderm 5% PATCH) 1 patch Q12HR TDERMAL 03/24/17 09:00 04/23/17 08:59 03/26/17 08:49 Montelukast Sodium (Singulair) 10 mg QPM ORAL 03/24/17 16:30 04/23/17 16:29 03/25/17 16:26 Nitroglycerin (Ntg) 0.4 mg Q5M PRN SL Prn Chest Pain 03/24/17 00:30 04/23/17 00:29 Ondansetron HCl (Zofran) 4 mg Q4H PRN IVP Nausea & Vomiting 03/24/17 00:30 04/23/17 00:29 Pantoprazole (Protonix) 40 mg DAILY ORAL 03/24/17 09:00 04/23/17 08:59 03/26/17 08:47 Polyethylene Glycol (Miralax) 17 gm DAILY PRN ORAL Constipation 03/25/17 08:00 04/24/17 07:59 03/25/17 13:25 Sevelamer Carbonate (Renvela) 800 mg TID@0630,1130,1630 ORAL 03/24/17 06:30 04/23/17 06:29 03/26/17 11:47 Sitagliptin Phosphate (Januvia) 25 mg ACBREAKFAST ORAL 03/24/17 06:30 04/23/17 06:29 03/26/17 05:20 Allergies: Coded Allergies: No Known Allergies (Unverified , 12/11/14) Subjective awake, alert, responsive, NAD, bradycardia over night Objective Last Vital Signs Date Time Temp Pulse Resp B/P (MAP) Pulse Ox O2 Delivery O2 Flow Rate FiO2 03/26/17 14:00 132/75 03/26/17 12:00 57 03/26/17 11:30 Room Air 03/26/17 11:30 97.9 20 03/26/17 08:00 100 Laboratory Tests Test 03/26/17 09:50 White Blood Count 7.4 K/UL (4.8-10.8) Red Blood Count 2.89 M/UL (4.20-5.40) L Hemoglobin 10.0 G/DL (12.0-16.0) L Hematocrit 29.5 % (37.0-47.0) L Mean Corpuscular Volume 102 FL (80-99) H Mean Corpuscular Hemoglobin 34.7 PG (27.0-31.0) H Mean Corpuscular Hemoglobin Concent 33.9 G/DL (32.0-36.0) Red Cell Distribution Width 13.0 % (11.6-14.8) Platelet Count 121 K/UL (150-450) L Mean Platelet Volume 7.6 FL (6.5-10.1) Neutrophils (%) (Auto) 58.4 % (45.0-75.0) Lymphocytes (%) (Auto) 26.7 % (20.0-45.0) Monocytes (%) (Auto) 10.1 % (1.0-10.0) H Eosinophils (%) (Auto) 3.9 % (0.0-3.0) H Basophils (%) (Auto) 0.9 % (0.0-2.0) Sodium Level 134 MMOL/L (136-145) L Potassium Level 5.6 MMOL/L (3.5-5.1) H Chloride Level 98 MMOL/L (98-107) Carbon Dioxide Level 24 MMOL/L (21-32) Anion Gap 12 mmol/L (5-15) Blood Urea Nitrogen 83 mg/dL (7-18) H Creatinine 11.3 MG/DL (0.55-1.30) H Estimat Glomerular Filtration Rate mL/min (>60) Glucose Level 175 MG/DL (74-106) H Calcium Level 8.5 MG/DL (8.5-10.1) Pro-B-Type Natriuretic Peptide 09397 pg/mL (0-125) H Microbiology Date/Time Source Procedure Growth Status 03/24/17 09:20 Nasal Nares Right MRSA Culture - Final NO METHICILLIN RESISTANT STAPH AUREUS... Complete Intake and Output 03/25/17 03/26/17 19:00 07:00 Intake Total 472 ml Output Total 400 ml Balance 472 ml -400 ml Intake Oral 472 ml Output Urine Total 400 ml Hemodialysis UF 0 ml # Voids 3 # Bowel Movements 1 Objective General: No acute distress, awake and alert HEENT: NCAT, sclera anicteric, PERRL, EOMI.Left chest PermCath. Neck: Supple, no significant jugular venous distention, Lungs: Good inspiratory effort, clear to auscultation bilaterally, no Wheeze Heart: Regular rate and rhythm, normal S1/S2, no murmur Abdomen: soft, nontender, nondistended. Normoactive bowel sounds.Obesity. Extremities: No Cyanosis , clubbing or edema. Neuro: A&O x 3, Able to move all extremities Skin: warm, no rashes or lesions Psych: Normal mood and affect Assessment/Plan Assessment/Plan 1. Syncopal episode / Bradycardia. 2. Chest pain. 3. End-stage renal disease on HD 4. Diabetes type 2. 5. Hypertension. 6. Anemia of chronic renal disease. 7. Hypothyroidism. 8. Hyperparathyroidism. 9. Atrial fibrillation. 10. Cerebrovascular disease. Plan: dialysis today F/U with cardiology recommendation Monitor Labs Hold Coreg Jethro Torre MD Mar 26, 2017 15:40
[2017-03-26] MEDS: Montelukast 10mg tablet ORAL SCH (15:43)
--- NOTE | 2017-03-26 16:38 | Cardiology Progress Note ---
Assessment/Plan Assessment/Plan 1. Sinus bradycardia with premature complexes. 2. Possible history of atrial flutter 3. History of end-stage renal disease, on hemodialysis. 4. Diabetes mellitus, type 2. 5. History of hypertension. 6. Hyperkalemia. 7. Anemia. 8. Hypothyroidism likey related to amiod . 9. History of cerebrovascular accident. tele shows some pac some non conducted no sig pauses noted no atrial fib or flutter noted so far is off coreg and amiod on sythroid may need higher dose short term if develops atrial fibrillation for flutter persistent will then need to be consider for a pacemaker in future to allow safely of med administration d/w dr brock Subjective Cardiovascular: Reports: chest pain - per dtr who tell me for many years has had pain not a new issue Respiratory: Denies: orthopnea, shortness of breath Gastrointestinal/Abdominal: Denies: abdominal pain Genitourinary: Denies: burning Objective Last 24 Hour Vital Signs Date Time Temp Pulse Resp B/P (MAP) Pulse Ox O2 Delivery O2 Flow Rate FiO2 03/26/17 15:30 Room Air 03/26/17 15:30 97.7 70 20 97/50 Room Air 03/26/17 14:00 132/75 03/26/17 12:00 57 03/26/17 11:30 Room Air 03/26/17 11:30 97.9 81 20 132/75 Room Air 03/26/17 09:00 162/55 03/26/17 08:00 96.8 76 18 162/55 100 Room Air 03/26/17 08:00 54 03/26/17 05:27 112/47 03/26/17 04:13 98.3 80 18 122/62 95 Room Air 03/26/17 04:00 47 03/26/17 00:00 41 03/25/17 23:30 98.0 100 20 120/55 Room Air 03/25/17 22:30 Room Air 03/25/17 22:00 113/44 03/25/17 21:00 98.2 101 22 117/51 Room Air 03/25/17 20:53 98.2 73 18 153/69 96 Room Air 03/25/17 20:50 149/59 03/25/17 20:00 61 General Appearance: alert Neck: supple Cardiovascular: normal rate, regular rhythm Respiratory/Chest: lungs clear, normal breath sounds Abdomen: normal bowel sounds, non tender, soft Extremities: no swelling Intake and Output 03/25/17 03/26/17 19:00 07:00 Intake Total 472 ml Output Total 400 ml Balance 472 ml -400 ml Intake Oral 472 ml Output Urine Total 400 ml Hemodialysis UF 0 ml # Voids 3 # Bowel Movements 1 Laboratory Tests Test 03/26/17 09:50 White Blood Count 7.4 K/UL (4.8-10.8) Red Blood Count 2.89 M/UL (4.20-5.40) L Hemoglobin 10.0 G/DL (12.0-16.0) L Hematocrit 29.5 % (37.0-47.0) L Mean Corpuscular Volume 102 FL (80-99) H Mean Corpuscular Hemoglobin 34.7 PG (27.0-31.0) H Mean Corpuscular Hemoglobin Concent 33.9 G/DL (32.0-36.0) Red Cell Distribution Width 13.0 % (11.6-14.8) Platelet Count 121 K/UL (150-450) L Mean Platelet Volume 7.6 FL (6.5-10.1) Neutrophils (%) (Auto) 58.4 % (45.0-75.0) Lymphocytes (%) (Auto) 26.7 % (20.0-45.0) Monocytes (%) (Auto) 10.1 % (1.0-10.0) H Eosinophils (%) (Auto) 3.9 % (0.0-3.0) H Basophils (%) (Auto) 0.9 % (0.0-2.0) Sodium Level 134 MMOL/L (136-145) L Potassium Level 5.6 MMOL/L (3.5-5.1) H Chloride Level 98 MMOL/L (98-107) Carbon Dioxide Level 24 MMOL/L (21-32) Anion Gap 12 mmol/L (5-15) Blood Urea Nitrogen 83 mg/dL (7-18) H Creatinine 11.3 MG/DL (0.55-1.30) H Estimat Glomerular Filtration Rate mL/min (>60) Glucose Level 175 MG/DL (74-106) H Calcium Level 8.5 MG/DL (8.5-10.1) Pro-B-Type Natriuretic Peptide 13425 pg/mL (0-125) H Microbiology Date/Time Source Procedure Growth Status 03/24/17 09:20 Nasal Nares Right MRSA Culture - Final NO METHICILLIN RESISTANT STAPH AUREUS... Complete SHIRLEY KNIGHT Mar 26, 2017 16:38
[2017-03-26 20:15] VITALS: BP 155/58
[2017-03-26] MEDS: Atorvastatin 20mg tab ORAL SCH (21:33)
[2017-03-27 00:21] VITALS: BP 150/63
[2017-03-27 04:38] VITALS: BP 149/79
[2017-03-27] MEDS: sitaGLIPtin 25mg tab ORAL SCH (05:33)
[2017-03-27] MEDS: HydrALAZINE 25mg tab ORAL SCH ×3 (05:34→20:31)
[2017-03-27] MEDS: Calcium Acetate 667mg Tab ORAL SCH ×3 (05:35→16:04)
[2017-03-27] MEDS: NovoLOG Insulin Flexpen SUBQ SCH ×4 (06:34→20:35)
[2017-03-27 08:18] VITALS: BP 177/75
[2017-03-27] MEDS: Pancrease Cap ORAL SCH ×3 (08:30→17:45)
[2017-03-27] MEDS: Aspirin Baby 81mg ORAL SCH (08:30)
[2017-03-27] MEDS: Docusate 100mg cap ORAL SCH ×3 (08:30→17:45)
[2017-03-27] MEDS: Heparin 5000 units/ml inj SUBQ SCH ×2 (08:34→20:33)
--- NOTE | 2017-03-27 08:57 | Pulmonology Progress Note ---
Assessment/Plan Problems: (1) Bradycardia (2) Hyperkalemia (3) CHF exacerbation (4) ESRD (end stage renal disease) on dialysis (5) Hypothyroidism Assessment/Plan hold Norvasc and Amiodarone sinus rhythm Endo to see check T3 and T 4 Dr. Geronimo seeing the patient HD by product operations associate keep in Telemetry watch BP Subjective ROS Limited/Unobtainable: No Constitutional: Reports: no symptoms HEENT: Repors: no symptoms Respiratory: Reports: no symptoms Cardiovascular: Reports: no symptoms Gastrointestinal/Abdominal: Reports: no symptoms Allergies: Coded Allergies: No Known Allergies (Unverified , 12/11/14) Objective Last 24 Hour Vital Signs Date Time Temp Pulse Resp B/P (MAP) Pulse Ox O2 Delivery O2 Flow Rate FiO2 03/27/17 08:51 177/75 03/27/17 08:18 97.7 73 18 177/75 96 Room Air 03/27/17 06:47 98.6 03/27/17 05:34 149/79 03/27/17 04:38 98.6 64 18 149/79 96 Room Air 03/27/17 04:00 64 03/27/17 00:21 97.7 68 18 150/63 96 Room Air 03/27/17 00:00 66 03/26/17 21:34 155/58 03/26/17 21:34 155/58 03/26/17 20:15 98.1 71 18 155/58 95 Room Air 03/26/17 20:00 72 03/26/17 16:00 71 03/26/17 15:30 Room Air 03/26/17 15:30 97.7 70 20 97/50 Room Air 03/26/17 14:00 132/75 03/26/17 12:00 57 03/26/17 11:30 Room Air 03/26/17 11:30 97.9 81 20 132/75 Room Air 03/26/17 09:00 162/55 Intake and Output 03/26/17 03/27/17 19:00 07:00 Intake Total 472 ml Output Total 3000 ml 300 ml Balance -2528 ml -300 ml Intake Oral 472 ml Output Urine Total 300 ml Hemodialysis UF 3000 ml # Voids 1 # Bowel Movements 1 Objective no episode of bradycardia since yesterday noon HEENT: normocephalic Respiratory/Chest: chest wall non-tender, lungs clear, normal breath sounds Breasts: no masses Cardiovascular: normal peripheral pulses, normal rate Abdomen: normal bowel sounds, no organomegaly Extremities: no cyanosis, no clubbing Skin: no rash Microbiology Date/Time Source Procedure Growth Status 03/24/17 09:20 Nasal Nares Right MRSA Culture - Final NO METHICILLIN RESISTANT STAPH AUREUS... Complete Laboratory Tests 03/26/17 09:50: White Blood Count 7.4, Red Blood Count 2.89L, Hemoglobin 10.0L, Hematocrit 29.5L , Mean Corpuscular Volume 102H, Mean Corpuscular Hemoglobin 34.7H, Mean Corpuscular Hemoglobin Concent 33.9, Red Cell Distribution Width 13.0, Platelet Count 121L, Mean Platelet Volume 7.6, Neutrophils (%) (Auto) 58.4, Lymphocytes ( %) (Auto) 26.7, Monocytes (%) (Auto) 10.1H, Eosinophils (%) (Auto) 3.9H, Basophils (%) (Auto) 0.9, Sodium Level 134L, Potassium Level 5.6H, Chloride Level 98, Carbon Dioxide Level 24, Anion Gap 12, Blood Urea Nitrogen 83H, Creatinine 11.3H, Estimat Glomerular Filtration Rate , Glucose Level 175H, Calcium Level 8.5, Pro-B-Type Natriuretic Peptide [id number] Current Medications Medications (Trade) Dose Ordered Sig/Angelo Route PRN Reason Start Time Stop Time Status Last Admin Dose Admin Acetaminophen (Tylenol) 650 mg Q4H PRN ORAL Mild Pain/Temp > 100.5 03/24/17 00:30 04/23/17 00:29 03/27/17 05:35 Amylase/Lipase/ Protease (Pancrease) 4 ea THREE TIMES A DAY ORAL 03/25/17 09:00 04/24/17 08:59 03/27/17 08:30 Aspirin (ASA) 81 mg DAILY ORAL 03/24/17 09:00 04/23/17 08:59 03/27/17 08:30 Atorvastatin Calcium (Lipitor) 20 mg BEDTIME ORAL 03/24/17 21:00 04/23/17 20:59 03/26/17 21:33 Calcium Acetate (Phoslo) 667 mg TIAC ORAL 03/24/17 06:30 04/23/17 06:29 03/27/17 05:35 Clopidogrel Bisulfate (Plavix) 75 mg DAILY ORAL 03/24/17 09:00 04/23/17 08:59 03/27/17 08:29 Dextrose (Dextrose 50%) STAT PRN IV Hypoglycemia 03/24/17 00:30 04/23/17 00:29 Docusate Sodium (Colace) 100 mg TID ORAL 03/24/17 18:00 04/23/17 17:59 03/27/17 08:30 Heparin Sodium (Porcine) (Heparin 5000 units/ml) 5,000 units EVERY 12 HOURS SUBQ 03/24/17 09:00 04/23/17 08:59 03/27/17 08:34 Hydralazine HCl (Apresoline) 25 mg Q8HR ORAL 03/24/17 22:00 04/23/17 21:59 03/27/17 05:34 Insulin Aspart (NovoLOG) BEFORE MEALS AND HS SUBQ 03/24/17 06:30 04/23/17 06:29 03/27/17 06:34 Irbesartan (Avapro) 75 mg Q12HR ORAL 03/24/17 21:00 04/23/17 20:59 03/27/17 08:51 Levothyroxine Sodium (Synthroid) 100 mcg DAILY@0630 ORAL 03/24/17 06:30 04/23/17 06:29 03/27/17 05:37 Lidocaine (Lidoderm 5% PATCH) 1 patch Q12HR TDERMAL 03/24/17 09:00 04/23/17 08:59 03/27/17 08:31 Montelukast Sodium (Singulair) 10 mg QPM ORAL 03/24/17 16:30 04/23/17 16:29 03/26/17 15:43 Nitroglycerin (Ntg) 0.4 mg Q5M PRN SL Prn Chest Pain 03/24/17 00:30 04/23/17 00:29 Ondansetron HCl (Zofran) 4 mg Q4H PRN IVP Nausea & Vomiting 03/24/17 00:30 04/23/17 00:29 Pantoprazole (Protonix) 40 mg DAILY ORAL 03/24/17 09:00 04/23/17 08:59 03/27/17 08:30 Polyethylene Glycol (Miralax) 17 gm DAILY PRN ORAL Constipation 03/25/17 08:00 04/24/17 07:59 03/25/17 13:25 Sevelamer Carbonate (Renvela) 800 mg TID@0630,1130,1630 ORAL 03/24/17 06:30 04/23/17 06:29 03/27/17 05:34 Sitagliptin Phosphate (Januvia) 25 mg ACBREAKFAST ORAL 03/24/17 06:30 04/23/17 06:29 03/27/17 05:33 LEONARDO AARON Mar 27, 2017 08:57
--- NOTE | 2017-03-27 10:34 | Nephrology Progress Note ---
Assessment/Plan Problem List: (1) ESRD (end stage renal disease) on dialysis (2) Hyperkalemia (3) Bradycardia (4) Hypothyroidism Assessment - Bradycardia - Hyperkalemia- K 5.6 - CHF exacerbation Other Conditions: - ESRD (end stage renal disease) on dialysis - Hypothyroidism - Obese - DM - HTN - Anemia - PAF Plan Assessment/Plan no labs today respiratory treatment titrate fio2 check electrolytes HD 03/26/17 - was supposed to be done 03/25/17 but had Catheter malfunction Next HD 03/29/17 cxr : Cardiomegaly with mild central pulmonary vascular congestion. No definite focal airspace consolidation. echo : Left ventricular ejection fraction estimated to be 60-65%. No evidence of left ventricular hypertrophy. cardiac evaluation per orders Subjective ROS Limited/Unobtainable: No Constitutional: Reports: malaise Objective Objective Last 24 Hour Vital Signs Date Time Temp Pulse Resp B/P (MAP) Pulse Ox O2 Delivery O2 Flow Rate FiO2 03/27/17 08:51 177/75 03/27/17 08:18 97.7 73 18 177/75 96 Room Air 03/27/17 06:47 98.6 03/27/17 05:34 149/79 03/27/17 04:38 98.6 64 18 149/79 96 Room Air 03/27/17 04:00 64 03/27/17 00:21 97.7 68 18 150/63 96 Room Air 03/27/17 00:00 66 03/26/17 21:34 155/58 03/26/17 21:34 155/58 03/26/17 20:15 98.1 71 18 155/58 95 Room Air 03/26/17 20:00 72 03/26/17 16:00 71 03/26/17 15:30 Room Air 03/26/17 15:30 97.7 70 20 97/50 Room Air 03/26/17 14:00 132/75 03/26/17 12:00 57 03/26/17 11:30 Room Air 03/26/17 11:30 97.9 81 20 132/75 Room Air Intake and Output 03/26/17 03/27/17 19:00 07:00 Intake Total 472 ml Output Total 3000 ml 300 ml Balance -2528 ml -300 ml Intake Oral 472 ml Output Urine Total 300 ml Hemodialysis UF 3000 ml # Voids 1 # Bowel Movements 1 Laboratory Tests 03/27/17 09:30: C-Reactive Protein, Quantitative [Pending], Free Thyroxine [Pending], Free Triiodothyronine [Pending] Height (Feet): 5 Height (Inches): 4.00 Weight (Pounds): 230 General Appearance: no apparent distress Cardiovascular: normal rate Respiratory/Chest: decreased breath sounds Abdomen: soft, other - obese Objective no change in PE KEKE ESPAÑA Mar 27, 2017 10:34
[2017-03-27 13:45] VITALS: BP 148/70
--- NOTE | 2017-03-27 14:34 | Internal Med Progress Note ---
Subjective Date of Service: Mar 27, 2017 Physician Name Moody Restrepo Attending Physician Jethro Torre MD Current Medications Medications (Trade) Dose Ordered Sig/Angelo Route PRN Reason Start Time Stop Time Status Last Admin Dose Admin Acetaminophen (Tylenol) 650 mg Q4H PRN ORAL Mild Pain/Temp > 100.5 03/24/17 00:30 04/23/17 00:29 03/27/17 05:35 Amlodipine Besylate (Norvasc) 2.5 mg Q12H PRN ORAL sbp>150 03/27/17 11:30 04/26/17 11:29 03/27/17 11:35 Amylase/Lipase/ Protease (Pancrease) 4 ea THREE TIMES A DAY ORAL 03/25/17 09:00 04/24/17 08:59 03/27/17 13:22 Aspirin (ASA) 81 mg DAILY ORAL 03/24/17 09:00 04/23/17 08:59 03/27/17 08:30 Atorvastatin Calcium (Lipitor) 20 mg BEDTIME ORAL 03/24/17 21:00 04/23/17 20:59 03/26/17 21:33 Calcium Acetate (Phoslo) 667 mg TIAC ORAL 03/24/17 06:30 04/23/17 06:29 03/27/17 11:25 Clopidogrel Bisulfate (Plavix) 75 mg DAILY ORAL 03/24/17 09:00 04/23/17 08:59 03/27/17 08:29 Dextrose (Dextrose 50%) STAT PRN IV Hypoglycemia 03/24/17 00:30 04/23/17 00:29 Docusate Sodium (Colace) 100 mg TID ORAL 03/24/17 18:00 04/23/17 17:59 03/27/17 13:22 Heparin Sodium (Porcine) (Heparin 5000 units/ml) 5,000 units EVERY 12 HOURS SUBQ 03/24/17 09:00 04/23/17 08:59 03/27/17 08:34 Hydralazine HCl (Apresoline) 25 mg Q8HR ORAL 03/24/17 22:00 04/23/17 21:59 03/27/17 13:47 Insulin Aspart (NovoLOG) BEFORE MEALS AND HS SUBQ 03/24/17 06:30 04/23/17 06:29 03/27/17 11:37 Irbesartan (Avapro) 75 mg Q12HR ORAL 03/24/17 21:00 04/23/17 20:59 03/27/17 08:51 Levothyroxine Sodium (Synthroid) 100 mcg DAILY@0630 ORAL 03/24/17 06:30 04/23/17 06:29 03/27/17 05:37 Lidocaine (Lidoderm 5% PATCH) 1 patch Q12HR TDERMAL 03/24/17 09:00 04/23/17 08:59 03/27/17 08:31 Montelukast Sodium (Singulair) 10 mg QPM ORAL 03/24/17 16:30 04/23/17 16:29 03/26/17 15:43 Nitroglycerin (Ntg) 0.4 mg Q5M PRN SL Prn Chest Pain 03/24/17 00:30 04/23/17 00:29 Ondansetron HCl (Zofran) 4 mg Q4H PRN IVP Nausea & Vomiting 03/24/17 00:30 04/23/17 00:29 Pantoprazole (Protonix) 40 mg DAILY ORAL 03/24/17 09:00 04/23/17 08:59 03/27/17 08:30 Polyethylene Glycol (Miralax) 17 gm DAILY PRN ORAL Constipation 03/25/17 08:00 04/24/17 07:59 03/25/17 13:25 Sevelamer Carbonate (Renvela) 800 mg TID@0630,1130,1630 ORAL 03/24/17 06:30 04/23/17 06:29 03/27/17 11:25 Sitagliptin Phosphate (Januvia) 25 mg ACBREAKFAST ORAL 03/24/17 06:30 04/23/17 06:29 03/27/17 05:33 Allergies: Coded Allergies: No Known Allergies (Unverified , 12/11/14) ROS Limited/Unobtainable: No Constitutional: Reports: no symptoms HEENT: Reports: no symptoms Cardiovascular: Reports: no symptoms Respiratory: Reports: no symptoms Gastrointestinal/Abdominal: Reports: no symptoms Genitourinary: Reports: no symptoms Neurologic/Psychiatric: Reports: no symptoms Subjective 71 YO F admitted with chest pain and end stage renal dis. Cover for Int Med-Dr Torre. Await cardiology consult. Objective Last Vital Signs Date Time Temp Pulse Resp B/P (MAP) Pulse Ox O2 Delivery O2 Flow Rate FiO2 03/27/17 13:47 148/70 03/27/17 13:45 97.7 71 18 96 Room Air Laboratory Tests Test 03/27/17 09:30 C-Reactive Protein, Quantitative < 0.4 mg/dL (0.00-0.90) Free Thyroxine 1.00 NG/DL (0.76-1.46) Free Triiodothyronine 1.9 pg/mL (2.3-4.2) L Intake and Output 03/26/17 03/27/17 19:00 07:00 Intake Total 472 ml Output Total 3000 ml 300 ml Balance -2528 ml -300 ml Intake Oral 472 ml Output Urine Total 300 ml Hemodialysis UF 3000 ml # Voids 1 # Bowel Movements 1 Objective General Appearance: WD/WN, no apparent distress, alert, obese EENT: PERRL/EOMI, normal ENT inspection Neck: non-tender, normal alignment, supple, normal inspection Cardiovascular: normal peripheral pulses, normal rate, regular rhythm, no gallop/murmur, no JVD Respiratory/Chest: chest wall non-tender, lungs clear, normal breath sounds, no respiratory distress, no accessory muscle use Abdomen: normal bowel sounds, non tender, soft, no organomegaly, no mass, abnormal bowel sounds Extremities: normal range of motion Neurologic: stone layer II-XII grossly normal, no motor/sensory deficits Skin: normal pigmentation, warm/dry Assessment/Plan Problem List: (1) Syncope (2) ESRD on hemodialysis Assessment & Plan: see nephrology note. Hemodialysis today 03/25/17 (3) Diabetes mellitus, type II Assessment & Plan: continue novolog sliding scale and januvia. (4) Hypertension Assessment & Plan: Continue hydralazine (5) Anemia of renal disease (6) Secondary hyperparathyroidism (7) Atrial fibrillation Assessment & Plan: Await cardiology consult. Troponin negative. (8) Cerebral vascular disease (9) Hypothyroidism (10) CHF (congestive heart failure) Assessment & Plan: Volume overload. LVEF=60-65%. Await cardiology consult. S /P hemodialysis 03/26/17 (11) Bradycardia Assessment & Plan: Await EP cardiology consult ?pacemaker? Status: progressing MOODY RESTREPO Mar 27, 2017 14:34
[2017-03-27 15:30] VITALS: BP 144/61
[2017-03-27] MEDS: Montelukast 10mg tablet ORAL SCH (16:04)
--- NOTE | 2017-03-27 16:22 | Cardiac Electrophysiology PN ---
Subjective Subjective EP consult dictated [id number] Kain resolved off Coreg and amiodarone but at risk of recurrence fo atrial fib/ flutter with RVR. Watch on tele over the weekend. Objective Last 24 Hour Vital Signs Date Time Temp Pulse Resp B/P (MAP) Pulse Ox O2 Delivery O2 Flow Rate FiO2 03/27/17 15:30 97.7 72 18 144/61 96 Room Air 03/27/17 13:47 148/70 03/27/17 13:45 97.7 71 18 148/70 96 Room Air 03/27/17 11:53 70 03/27/17 11:35 74 180/95 03/27/17 08:51 177/75 03/27/17 08:18 97.7 73 18 177/75 96 Room Air 03/27/17 07:57 73 03/27/17 06:47 98.6 03/27/17 05:34 149/79 03/27/17 04:38 98.6 64 18 149/79 96 Room Air 03/27/17 04:00 64 03/27/17 00:21 97.7 68 18 150/63 96 Room Air 03/27/17 00:00 66 03/26/17 21:34 155/58 03/26/17 21:34 155/58 03/26/17 20:15 98.1 71 18 155/58 95 Room Air 03/26/17 20:00 72 Intake and Output 03/26/17 03/27/17 19:00 07:00 Intake Total 472 ml Output Total 3000 ml 300 ml Balance -2528 ml -300 ml Intake Oral 472 ml Output Urine Total 300 ml Hemodialysis UF 3000 ml # Voids 1 # Bowel Movements 1 Laboratory Tests Test 03/27/17 09:30 C-Reactive Protein, Quantitative < 0.4 mg/dL (0.00-0.90) Free Thyroxine 1.00 NG/DL (0.76-1.46) Free Triiodothyronine 1.9 pg/mL (2.3-4.2) DONAVAN BAUER Mar 27, 2017 16:22
[2017-03-27] MEDS ORDERED: NS 500ML ONE (16:48)
[2017-03-27 20:00] VITALS: BP 161/74
--- NOTE | 2017-03-27 20:15 | Cardiology Progress Note ---
Subjective Subjective The patinet reports feeling better] she doew not speak vincentian, daughter is translatin she had headache with high Bp in the mroning but now she feels better left sdied disconfort imrpoved Objective Last 24 Hour Vital Signs Date Time Temp Pulse Resp B/P (MAP) Pulse Ox O2 Delivery O2 Flow Rate FiO2 03/27/17 16:48 73 03/27/17 15:30 97.7 72 18 144/61 96 Room Air 03/27/17 13:47 148/70 03/27/17 13:45 97.7 71 18 148/70 96 Room Air 03/27/17 11:53 70 03/27/17 11:35 74 180/95 03/27/17 08:51 177/75 03/27/17 08:18 97.7 73 18 177/75 96 Room Air 03/27/17 07:57 73 03/27/17 06:47 98.6 03/27/17 05:34 149/79 03/27/17 04:38 98.6 64 18 149/79 96 Room Air 03/27/17 04:00 64 03/27/17 00:21 97.7 68 18 150/63 96 Room Air 03/27/17 00:00 66 03/26/17 21:34 155/58 03/26/17 21:34 155/58 03/26/17 20:15 98.1 71 18 155/58 95 Room Air General Appearance: no apparent distress, alert EENT: PERRL/EOMI Neck: supple Rhythm: SB Cardiovascular: normal rate Abdomen: distended Extremities: non-pitting Intake and Output 03/26/17 03/27/17 19:00 07:00 Intake Total 472 ml Output Total 3000 ml 300 ml Balance -2528 ml -300 ml Intake Oral 472 ml Output Urine Total 300 ml Hemodialysis UF 3000 ml # Voids 1 # Bowel Movements 1 Laboratory Tests Test 03/27/17 09:30 C-Reactive Protein, Quantitative < 0.4 mg/dL (0.00-0.90) Free Thyroxine 1.00 NG/DL (0.76-1.46) Free Triiodothyronine 1.9 pg/mL (2.3-4.2) L Objective sick sinus syndrome currently in sinus rhythm will monitor HELDER SILVEIRA Mar 27, 2017 20:15
[2017-03-27] MEDS: Miralax 17gm pkt ORAL PRN (20:30)
[2017-03-27] MEDS: Atorvastatin 20mg tab ORAL SCH (20:31)
[2017-03-28] VITALS: BP 159/74
[2017-03-28] MEDS ORDERED: Zolpidem 5mg tab ORAL PRN (00:30)
--- NOTE | 2017-03-28 00:45 | Consultation ---
DATE OF CONSULTATION: 03/27/2017 CARDIAC ELECTROPHYSIOLOGY CONSULTATION CONSULTING PHYSICIAN: Gordo Lima M.D. ATTENDING/REFERRING PHYSICIAN: Jethro Torre M.D. REASON FOR CONSULTATION: Management of bradycardia in a patient with history of atrial flutter and consideration for possible permanent pacemaker. HISTORY OF PRESENT ILLNESS: The patient is a 71-year-old Chinese lady with history of hypertension, paroxysmal atrial flutter, diabetes, and end-stage renal disease, on hemodialysis, who was admitted and was evaluated by Dr. Geronimo for her bradycardia and pauses. The patient was on Coreg and amiodarone and both were discontinued. The concern was recurrence of atrial flutter with rapid ventricular response and cardiac electrophysiology consultation was requested for possible permanent pacemaker placement. At the time of my evaluation, the patient denies any chest pain, palpitation, or shortness of breath. PAST MEDICAL HISTORY: 1. Hypertension. 2. Diabetes. 3. History of atrial fibrillation and flutter. 4. End-stage renal disease, on hemodialysis. 5. History of hyperkalemia. 6. Anemia. 7. Hypothyroidism. 8. History of CVA. FAMILY HISTORY: Noncontributory. SOCIAL HISTORY: She lives at home. Does not smoke or drink alcohol. REVIEW OF SYSTEMS: Thoroughly performed and was negative other than what was mentioned in the history of present illness. PHYSICAL EXAMINATION: VITAL SIGNS: Blood pressure is 144/61, pulse 72, respirations 18, and temperature 97.7. HEAD AND NECK: Showed no JVD or carotid bruits. LUNGS: Clear. CARDIOVASCULAR: Shows regular S1 and S2 with no gallop. ABDOMEN: Soft. EXTREMITIES: Trace pitting edema and has AV shunt in both upper extremities and the right chest has a PermCath. LABORATORY DATA: White count of 7.4, hemoglobin of 10, hematocrit 29.5, and platelet count is 121,000. Sodium 134, potassium is 5.6, BUN of 82, creatinine 11.3, and glucose of 175. Troponin is negative. DIAGNOSTIC STUDIES: EKG showed sinus rhythm with PACs, rate of 54, and right bundle-branch block. Telemetry strips showed episodes of bradycardia mostly due to blocked PACs. ASSESSMENT AND PLAN: 1. Bradycardia. I agree with withholding the amiodarone and Coreg. If the patient develops atrial flutter or atrial fibrillation with rapid ventricular response, she would likely need permanent pacemaker implantation, but at this time, we will hold off as the patient is currently not bradycardic after Coreg and amiodarone were discontinued. the patient develops classical atrial flutter that she may be amenable to ablation long-term amiodarone therapy. 2. Hypertension, currently on Avapro 75 mg b.i.d. 3. Hyperlipidemia, on Lipitor. 4. Diabetes. 5. Obesity. 6. End-stage renal disease, on hemodialysis. 7. Anemia of renal disease. 8. History of cerebrovascular accident. 9. Status post questionable syncope as well as generalized weakness, status post fall. In the emergency room, the patient's heart rate was in the 30s and 40s, but her potassium was 6.2. We will continue to watch the patient on telemetry. Thank you very much, Dr. Torre, for allowing me to participate in the care of this lady. Please do not hesitate to contact me if you have any questions regarding my evaluation. Gordo Lima M.D. DR: KENTON JOB#: [id number] CC:
[2017-03-28 04:00] VITALS: BP 157/91
[2017-03-28] MEDS: HydrALAZINE 25mg tab ORAL SCH (06:44)
[2017-03-28] MEDS: Calcium Acetate 667mg Tab ORAL SCH ×2 (06:45→11:05)
[2017-03-28] MEDS: sitaGLIPtin 25mg tab ORAL SCH (06:45)
[2017-03-28] MEDS: NovoLOG Insulin Flexpen SUBQ SCH ×2 (06:49→11:08)
[2017-03-28 08:00] VITALS: BP 164/77
[2017-03-28] MEDS: Docusate 100mg cap ORAL SCH ×2 (08:32→12:12)
[2017-03-28] MEDS: Aspirin Baby 81mg ORAL SCH (08:32)
[2017-03-28] MEDS: Pancrease Cap ORAL SCH ×2 (08:32→12:12)
[2017-03-28] MEDS: Heparin 5000 units/ml inj SUBQ SCH (08:35)
--- NOTE | 2017-03-28 09:23 | General Progress Note ---
Assessment/Plan Problem List: (1) Hypothyroidism ICD Codes: E03.9 - Hypothyroidism, unspecified SNOMED: 74762385 (2) ESRD (end stage renal disease) on dialysis ICD Codes: N18.6 - End stage renal disease; Z99.2 - Dependence on renal dialysis SNOMED: 977027485 (3) Diabetes mellitus, type II ICD Codes: E11.9 - Type 2 diabetes mellitus without complications SNOMED: 74322647 (4) Syncope ICD Codes: R55 - Syncope and collapse SNOMED: 069516159 (5) Bradycardia ICD Codes: R00.1 - Bradycardia, unspecified SNOMED: 17087421 Assessment/Plan DM control is fair - continue Januvia renal dose of 25 mg + NISS Hypothyroidism is not adequately treated - increase Levothyroxine 100 to 125 mcg daily - repeat TSH, free T4 in 3 weeks Subjective Allergies: Coded Allergies: No Known Allergies (Unverified , 12/11/14) All Systems: reviewed and negative except above Subjective events noted admitted with bradycardia and syncope hx of DM, ESRD, hypothyroidism Levothyroxine dosage of 100 mcg as OP TSH is significantly elevated Objective Last 24 Hour Vital Signs Date Time Temp Pulse Resp B/P (MAP) Pulse Ox O2 Delivery O2 Flow Rate FiO2 03/28/17 08:32 168/77 03/28/17 06:44 157/91 03/28/17 04:00 97.0 68 20 157/91 97 03/28/17 04:00 68 03/28/17 00:00 97.5 72 20 159/74 99 03/28/17 00:00 65 03/27/17 20:33 161/74 03/27/17 20:31 161/74 03/27/17 20:00 97.0 73 20 161/74 97 03/27/17 20:00 70 03/27/17 16:48 73 03/27/17 15:30 97.7 72 18 144/61 96 Room Air 03/27/17 13:47 148/70 03/27/17 13:45 97.7 71 18 148/70 96 Room Air 03/27/17 11:53 70 03/27/17 11:35 74 180/95 Intake and Output 03/27/17 03/28/17 19:00 07:00 Intake Total 390 ml 240 ml Balance 390 ml 240 ml Intake Oral 390 ml 240 ml # Voids 2 # Bowel Movements 2 1 Laboratory Tests 03/27/17 09:30: C-Reactive Protein, Quantitative < 0.4, Free Thyroxine 1.00, Free Triiodothyronine 1.9L Height (Feet): 5 Height (Inches): 4.00 Weight (Pounds): 230 General Appearance: no apparent distress EENT: pale conjunctivae Neck: normal alignment Cardiovascular: bradycardia Respiratory/Chest: lungs clear Abdomen: normal bowel sounds Pelvis: normal external exam Edema: no edema noted Arm (L), no edema noted Arm (R), no edema noted Leg (L), no edema noted Leg (R), no edema noted Pedal (L), no edema noted Pedal (R), no edema noted Generalized Objective Current Medications Medications (Trade) Dose Ordered Sig/Angelo Route PRN Reason Start Time Stop Time Status Last Admin Dose Admin Acetaminophen (Tylenol) 650 mg Q4H PRN ORAL Mild Pain/Temp > 100.5 03/24/17 00:30 04/23/17 00:29 03/28/17 00:37 Amlodipine Besylate (Norvasc) 2.5 mg Q12H PRN ORAL sbp>150 03/27/17 11:30 04/26/17 11:29 03/27/17 11:35 Amylase/Lipase/ Protease (Pancrease) 4 ea THREE TIMES A DAY ORAL 03/25/17 09:00 04/24/17 08:59 03/28/17 08:32 Aspirin (ASA) 81 mg DAILY ORAL 03/24/17 09:00 04/23/17 08:59 03/28/17 08:32 Atorvastatin Calcium (Lipitor) 20 mg BEDTIME ORAL 03/24/17 21:00 04/23/17 20:59 03/27/17 20:31 Calcium Acetate (Phoslo) 667 mg TIAC ORAL 03/24/17 06:30 04/23/17 06:29 03/28/17 06:45 Clopidogrel Bisulfate (Plavix) 75 mg DAILY ORAL 03/24/17 09:00 04/23/17 08:59 03/28/17 08:32 Dextrose (Dextrose 50%) STAT PRN IV Hypoglycemia 03/24/17 00:30 04/23/17 00:29 Docusate Sodium (Colace) 100 mg TID ORAL 03/24/17 18:00 04/23/17 17:59 03/28/17 08:32 Heparin Sodium (Porcine) (Heparin 5000 units/ml) 5,000 units EVERY 12 HOURS SUBQ 03/24/17 09:00 04/23/17 08:59 03/28/17 08:35 Hydralazine HCl (Apresoline) 25 mg Q8HR ORAL 03/24/17 22:00 04/23/17 21:59 03/28/17 06:44 Insulin Aspart (NovoLOG) BEFORE MEALS AND HS SUBQ 03/24/17 06:30 04/23/17 06:29 03/28/17 06:49 Irbesartan (Avapro) 75 mg Q12HR ORAL 03/24/17 21:00 04/23/17 20:59 03/28/17 08:32 Levothyroxine Sodium (Synthroid) 100 mcg DAILY@0630 ORAL 03/24/17 06:30 04/23/17 06:29 03/28/17 06:44 Lidocaine (Lidoderm 5% PATCH) 1 patch Q12HR TDERMAL 03/24/17 09:00 04/23/17 08:59 03/27/17 21:50 Montelukast Sodium (Singulair) 10 mg QPM ORAL 03/24/17 16:30 04/23/17 16:29 03/27/17 16:04 Nitroglycerin (Ntg) 0.4 mg Q5M PRN SL Prn Chest Pain 03/24/17 00:30 04/23/17 00:29 Ondansetron HCl (Zofran) 4 mg Q4H PRN IVP Nausea & Vomiting 03/24/17 00:30 04/23/17 00:29 Pantoprazole (Protonix) 40 mg DAILY ORAL 03/24/17 09:00 04/23/17 08:59 03/28/17 08:33 Polyethylene Glycol (Miralax) 17 gm DAILY PRN ORAL Constipation 03/25/17 08:00 04/24/17 07:59 03/27/17 20:30 Sevelamer Carbonate (Renvela) 800 mg TID@0630,1130,1630 ORAL 03/24/17 06:30 04/23/17 06:29 03/28/17 06:44 Sitagliptin Phosphate (Januvia) 25 mg ACBREAKFAST ORAL 03/24/17 06:30 04/23/17 06:29 03/28/17 06:45 Zolpidem Tartrate (Ambien) 5 mg HSPRN PRN ORAL Insomnia 03/28/17 00:30 04/04/17 00:29 03/28/17 00:37 Item Value Date Time Bedside Blood Glucose 136 mg/dl H 03/28/17 0655 Bedside Blood Glucose 175 mg/dl H 03/27/17 2100 Bedside Blood Glucose 175 mg/dl H 03/27/17 1642 Bedside Blood Glucose 166 mg/dl H 03/27/17 1137 Bedside Blood Glucose 164 mg/dl H 03/27/17 0634 AMANDA BROWN Mar 28, 2017 09:23
--- NOTE | 2017-03-28 09:32 | Pulmonology Progress Note ---
Assessment/Plan Problems: (1) Bradycardia (2) Hyperkalemia (3) CHF exacerbation (4) ESRD (end stage renal disease) on dialysis (5) Hypothyroidism Assessment/Plan hold Norvasc and Amiodarone sinus rhythm, HR is 70 Endo to see check T3 and T 4 Dr. Geronimo seeing the patient HD by line crew supervisor keep in Telemetry watch BP Subjective ROS Limited/Unobtainable: No Interval Events: comfortable Allergies: Coded Allergies: No Known Allergies (Unverified , 12/11/14) Objective Last 24 Hour Vital Signs Date Time Temp Pulse Resp B/P (MAP) Pulse Ox O2 Delivery O2 Flow Rate FiO2 03/28/17 08:32 168/77 03/28/17 08:00 98.2 75 18 164/77 99 03/28/17 06:44 157/91 03/28/17 04:00 97.0 68 20 157/91 97 03/28/17 04:00 68 03/28/17 00:00 97.5 72 20 159/74 99 03/28/17 00:00 65 03/27/17 20:33 161/74 03/27/17 20:31 161/74 03/27/17 20:00 97.0 73 20 161/74 97 03/27/17 20:00 70 03/27/17 16:48 73 03/27/17 15:30 97.7 72 18 144/61 96 Room Air 03/27/17 13:47 148/70 03/27/17 13:45 97.7 71 18 148/70 96 Room Air 03/27/17 11:53 70 03/27/17 11:35 74 180/95 Intake and Output 03/27/17 03/28/17 19:00 07:00 Intake Total 390 ml 240 ml Balance 390 ml 240 ml Intake Oral 390 ml 240 ml # Voids 2 # Bowel Movements 2 1 Objective no episode of bradycardia Current Medications Medications (Trade) Dose Ordered Sig/Angelo Route PRN Reason Start Time Stop Time Status Last Admin Dose Admin Acetaminophen (Tylenol) 650 mg Q4H PRN ORAL Mild Pain/Temp > 100.5 03/24/17 00:30 04/23/17 00:29 03/28/17 00:37 Amlodipine Besylate (Norvasc) 2.5 mg Q12H PRN ORAL sbp>150 03/27/17 11:30 2/12/18 11:29 03/27/17 11:35 Amylase/Lipase/ Protease (Pancrease) 4 ea THREE TIMES A DAY ORAL 03/25/17 09:00 04/24/17 08:59 03/28/17 08:32 Aspirin (ASA) 81 mg DAILY ORAL 03/24/17 09:00 04/23/17 08:59 03/28/17 08:32 Atorvastatin Calcium (Lipitor) 20 mg BEDTIME ORAL 03/24/17 21:00 04/23/17 20:59 03/27/17 20:31 Calcium Acetate (Phoslo) 667 mg TIAC ORAL 03/24/17 06:30 04/23/17 06:29 03/28/17 06:45 Clopidogrel Bisulfate (Plavix) 75 mg DAILY ORAL 03/24/17 09:00 04/23/17 08:59 03/28/17 08:32 Dextrose (Dextrose 50%) STAT PRN IV Hypoglycemia 03/24/17 00:30 04/23/17 00:29 Docusate Sodium (Colace) 100 mg TID ORAL 03/24/17 18:00 04/23/17 17:59 03/28/17 08:32 Heparin Sodium (Porcine) (Heparin 5000 units/ml) 5,000 units EVERY 12 HOURS SUBQ 03/24/17 09:00 04/23/17 08:59 03/28/17 08:35 Hydralazine HCl (Apresoline) 25 mg Q8HR ORAL 03/24/17 22:00 04/23/17 21:59 03/28/17 06:44 Insulin Aspart (NovoLOG) BEFORE MEALS AND HS SUBQ 03/24/17 06:30 04/23/17 06:29 03/28/17 06:49 Irbesartan (Avapro) 75 mg Q12HR ORAL 03/24/17 21:00 04/23/17 20:59 03/28/17 08:32 Levothyroxine Sodium (Synthroid) 125 mcg DAILY@0630 ORAL 03/29/17 06:30 04/28/17 06:29 Lidocaine (Lidoderm 5% PATCH) 1 patch Q12HR TDERMAL 03/24/17 09:00 04/23/17 08:59 03/27/17 21:50 Montelukast Sodium (Singulair) 10 mg QPM ORAL 03/24/17 16:30 04/23/17 16:29 03/27/17 16:04 Nitroglycerin (Ntg) 0.4 mg Q5M PRN SL Prn Chest Pain 03/24/17 00:30 04/23/17 00:29 Ondansetron HCl (Zofran) 4 mg Q4H PRN IVP Nausea & Vomiting 03/24/17 00:30 04/23/17 00:29 Pantoprazole (Protonix) 40 mg DAILY ORAL 03/24/17 09:00 04/23/17 08:59 03/28/17 08:33 Polyethylene Glycol (Miralax) 17 gm DAILY PRN ORAL Constipation 03/25/17 08:00 04/24/17 07:59 03/27/17 20:30 Sevelamer Carbonate (Renvela) 800 mg TID@0630,1130,1630 ORAL 03/24/17 06:30 04/23/17 06:29 03/28/17 06:44 Sitagliptin Phosphate (Januvia) 25 mg ACBREAKFAST ORAL 03/24/17 06:30 04/23/17 06:29 03/28/17 06:45 Zolpidem Tartrate (Ambien) 5 mg HSPRN PRN ORAL Insomnia 03/28/17 00:30 04/04/17 00:29 03/28/17 00:37 LEONARDO AARON Mar 28, 2017 09:32
[2017-03-28] MEDS ORDERED: HydrALAZINE 25mg tab ORAL SCH (09:45)
[2017-03-28 09:54] LABS: BASOPHILS % (AUTO) 1.2 % (0.0-2.0); EOSINOPHILS % (AUTO) 6.4 % (0.0-3.0); HEMATOCRIT 29.6 % (37.0-47.0); HEMOGLOBIN 9.9 G/DL (12.0-16.0); MEAN CORPUSCULAR VOLUME 101 FL (80-99); MONOCYTES % (AUTO) 9.1 % (1.0-10.0); NEUTROPHILS % (AUTO) 59.3 % (45.0-75.0); PLATELET COUNT 157 K/UL (150-450); RED BLOOD COUNT 2.94 M/UL (4.20-5.40); WHITE BLOOD COUNT 7.1 K/UL (4.8-10.8)
[2017-03-28 10:07] VITALS: BP 171/68
[2017-03-28 10:17] LABS: ALANINE AMINOTRANSFERASE 23 U/L (12-78); ALBUMIN/GLOBULIN RATIO 0.8 (1.0-2.7); ALKALINE PHOSPHATASE 114 U/L (46-116); ANION GAP 9 mmol/L (5-15); ASPARTATE AMINO TRANSFERASE 24 U/L (15-37); BILIRUBIN,TOTAL 0.3 MG/DL (0.2-1.0); BLOOD UREA NITROGEN 76 mg/dL (7-18); CALCIUM 8.6 MG/DL (8.5-10.1); CARBON DIOXIDE 28 MMOL/L (21-32); CHLORIDE 94 MMOL/L (98-107); CREATININE 10.3 MG/DL (0.55-1.30); PHOSPHORUS 4.4 MG/DL (2.5-4.9); SODIUM 131 MMOL/L (136-145)
[2017-03-28 10:20] LABS: POTASSIUM 6.1 MMOL/L (3.5-5.1)
[2017-03-28 11:26] VITALS: BP 165/67
[2017-03-28] MEDS ORDERED: Sodium Polystyrene Sulfonate 15gm Powder ORAL ONE (12:00)
--- NOTE | 2017-03-28 13:22 | Nephrology Progress Note ---
Assessment/Plan Problem List: (1) ESRD (end stage renal disease) on dialysis (2) Hyperkalemia (3) Bradycardia (4) Hypothyroidism Assessment - Bradycardia - Hyperkalemia- K 5.6 - CHF exacerbation Other Conditions: - ESRD (end stage renal disease) on dialysis - Hypothyroidism - Obese - DM - HTN - Anemia - PAF Plan Assessment/Plan adjust BP meds HD 03/26/17 - was supposed to be done 03/25/17 but had Catheter malfunction Next HD 03/29/17 cxr : Cardiomegaly with mild central pulmonary vascular congestion. No definite focal airspace consolidation. echo : Left ventricular ejection fraction estimated to be 60-65%. No evidence of left ventricular hypertrophy. cardiac evaluation per orders Subjective ROS Limited/Unobtainable: No Constitutional: Reports: malaise Objective Objective Last 24 Hour Vital Signs Date Time Temp Pulse Resp B/P (MAP) Pulse Ox O2 Delivery O2 Flow Rate FiO2 03/28/17 12:11 68 165/67 03/28/17 11:26 99.1 68 18 165/67 98 03/28/17 10:07 171/68 03/28/17 09:54 168/77 03/28/17 08:32 168/77 03/28/17 08:00 80 03/28/17 08:00 98.2 75 18 164/77 99 03/28/17 06:44 157/91 03/28/17 04:00 97.0 68 20 157/91 97 03/28/17 04:00 68 03/28/17 00:00 97.5 72 20 159/74 99 03/28/17 00:00 65 03/27/17 20:33 161/74 03/27/17 20:31 161/74 03/27/17 20:00 97.0 73 20 161/74 97 03/27/17 20:00 70 03/27/17 16:48 73 03/27/17 15:30 97.7 72 18 144/61 96 Room Air 03/27/17 13:47 148/70 03/27/17 13:45 97.7 71 18 148/70 96 Room Air Intake and Output 03/27/17 03/28/17 19:00 07:00 Intake Total 390 ml 240 ml Balance 390 ml 240 ml Intake Oral 390 ml 240 ml # Voids 2 # Bowel Movements 2 1 Laboratory Tests 03/28/17 09:35: White Blood Count 7.1, Red Blood Count 2.94L, Hemoglobin 9.9L, Hematocrit 29.6L , Mean Corpuscular Volume 101H, Mean Corpuscular Hemoglobin 33.7H, Mean Corpuscular Hemoglobin Concent 33.5, Red Cell Distribution Width 13.0, Platelet Count 157, Mean Platelet Volume 7.9, Neutrophils (%) (Auto) 59.3, Lymphocytes (% ) (Auto) 24.0, Monocytes (%) (Auto) 9.1, Eosinophils (%) (Auto) 6.4H, Basophils (%) (Auto) 1.2, Sodium Level 131L, Potassium Level 6.1*H, Chloride Level 94L, Carbon Dioxide Level 28, Anion Gap 9, Blood Urea Nitrogen 76H, Creatinine 10.3H , Estimat Glomerular Filtration Rate , Glucose Level 174H, Uric Acid 6.4, Calcium Level 8.6, Phosphorus Level 4.4, Magnesium Level 1.9, Total Bilirubin 0.3, Aspartate Amino Transf (AST/SGOT) 24, Alanine Aminotransferase (ALT/SGPT) 23, Alkaline Phosphatase 114, Pro-B-Type Natriuretic Peptide [id number], Total Protein 6.8, Albumin 3.0L, Globulin 3.8, Albumin/Globulin Ratio 0.8L, Thyroid Stimulating Hormone (TSH) 17.767H Height (Feet): 5 Height (Inches): 4.00 Weight (Pounds): 230 General Appearance: no apparent distress Cardiovascular: normal rate Respiratory/Chest: decreased breath sounds Abdomen: soft Objective no change in PE KEKE ESPAÑA Mar 28, 2017 13:22
[2017-03-28] MEDS ORDERED: HydrALAZINE 50mg tab ORAL SCH (14:00)
[2017-03-28 16:00] VITALS: BP 159/74
--- NOTE | 2017-03-28 16:03 | Internal Med Progress Note ---
Subjective Date of Service: Mar 28, 2017 Physician Name Valentina Restrepo Attending Physician Jethro Torre MD Current Medications Medications (Trade) Dose Ordered Sig/Angelo Route PRN Reason Start Time Stop Time Status Last Admin Dose Admin Acetaminophen (Tylenol) 650 mg Q4H PRN ORAL Mild Pain/Temp > 100.5 03/24/17 00:30 04/23/17 00:29 03/28/17 00:37 Amlodipine Besylate (Norvasc) 5 mg Q12H PRN ORAL sbp>150mmHg 03/28/17 13:30 04/27/17 13:29 Amylase/Lipase/ Protease (Pancrease) 4 ea THREE TIMES A DAY ORAL 03/25/17 09:00 04/24/17 08:59 03/28/17 12:12 Aspirin (ASA) 81 mg DAILY ORAL 03/24/17 09:00 04/23/17 08:59 03/28/17 08:32 Atorvastatin Calcium (Lipitor) 20 mg BEDTIME ORAL 03/24/17 21:00 04/23/17 20:59 03/27/17 20:31 Calcium Acetate (Phoslo) 667 mg TIAC ORAL 03/24/17 06:30 04/23/17 06:29 03/28/17 11:05 Clopidogrel Bisulfate (Plavix) 75 mg DAILY ORAL 03/24/17 09:00 04/23/17 08:59 03/28/17 08:32 Dextrose (Dextrose 50%) STAT PRN IV Hypoglycemia 03/24/17 00:30 04/23/17 00:29 Docusate Sodium (Colace) 100 mg TID ORAL 03/24/17 18:00 04/23/17 17:59 03/28/17 12:12 Heparin Sodium (Porcine) (Heparin 5000 units/ml) 5,000 units EVERY 12 HOURS SUBQ 03/24/17 09:00 04/23/17 08:59 03/28/17 08:35 Hydralazine HCl (Apresoline) 50 mg Q8HR ORAL 03/28/17 14:00 04/27/17 13:59 03/28/17 15:21 Insulin Aspart (NovoLOG) BEFORE MEALS AND HS SUBQ 03/24/17 06:30 04/23/17 06:29 03/28/17 11:08 Irbesartan (Avapro) 75 mg Q12HR ORAL 03/24/17 21:00 04/23/17 20:59 03/28/17 08:32 Levothyroxine Sodium (Synthroid) 125 mcg DAILY@0630 ORAL 03/29/17 06:30 04/28/17 06:29 Lidocaine (Lidoderm 5% PATCH) 1 patch DAILY TDERMAL 03/28/17 09:30 04/27/17 09:29 03/28/17 09:54 Montelukast Sodium (Singulair) 10 mg QPM ORAL 03/24/17 16:30 04/23/17 16:29 03/27/17 16:04 Nitroglycerin (Ntg) 0.4 mg Q5M PRN SL Prn Chest Pain 03/24/17 00:30 04/23/17 00:29 Ondansetron HCl (Zofran) 4 mg Q4H PRN IVP Nausea & Vomiting 03/24/17 00:30 04/23/17 00:29 Pantoprazole (Protonix) 40 mg DAILY ORAL 03/24/17 09:00 04/23/17 08:59 03/28/17 08:33 Polyethylene Glycol (Miralax) 17 gm DAILY PRN ORAL Constipation 03/25/17 08:00 04/24/17 07:59 03/27/17 20:30 Sevelamer Carbonate (Renvela) 800 mg TID@0630,1130,1630 ORAL 03/24/17 06:30 04/23/17 06:29 03/28/17 11:05 Sitagliptin Phosphate (Januvia) 25 mg ACBREAKFAST ORAL 03/24/17 06:30 04/23/17 06:29 03/28/17 06:45 Zolpidem Tartrate (Ambien) 5 mg HSPRN PRN ORAL Insomnia 03/28/17 00:30 04/04/17 00:29 03/28/17 00:37 Allergies: Coded Allergies: No Known Allergies (Unverified , 12/11/14) Subjective 71 YO F admitted with chest pain and end stage renal dis. Cover for Int Harsh-Dr Torre. Objective Last Vital Signs Date Time Temp Pulse Resp B/P (MAP) Pulse Ox O2 Delivery O2 Flow Rate FiO2 03/28/17 15:21 159/74 03/28/17 12:11 68 03/28/17 11:26 99.1 18 98 03/27/17 15:30 Room Air Laboratory Tests Test 03/28/17 09:35 White Blood Count 7.1 K/UL (4.8-10.8) Red Blood Count 2.94 M/UL (4.20-5.40) L Hemoglobin 9.9 G/DL (12.0-16.0) L Hematocrit 29.6 % (37.0-47.0) L Mean Corpuscular Volume 101 FL (80-99) H Mean Corpuscular Hemoglobin 33.7 PG (27.0-31.0) H Mean Corpuscular Hemoglobin Concent 33.5 G/DL (32.0-36.0) Red Cell Distribution Width 13.0 % (11.6-14.8) Platelet Count 157 K/UL (150-450) Mean Platelet Volume 7.9 FL (6.5-10.1) Neutrophils (%) (Auto) 59.3 % (45.0-75.0) Lymphocytes (%) (Auto) 24.0 % (20.0-45.0) Monocytes (%) (Auto) 9.1 % (1.0-10.0) Eosinophils (%) (Auto) 6.4 % (0.0-3.0) H Basophils (%) (Auto) 1.2 % (0.0-2.0) Sodium Level 131 MMOL/L (136-145) L Potassium Level 6.1 MMOL/L (3.5-5.1) *H Chloride Level 94 MMOL/L (98-107) L Carbon Dioxide Level 28 MMOL/L (21-32) Anion Gap 9 mmol/L (5-15) Blood Urea Nitrogen 76 mg/dL (7-18) H Creatinine 10.3 MG/DL (0.55-1.30) H Estimat Glomerular Filtration Rate mL/min (>60) Glucose Level 174 MG/DL (74-106) H Uric Acid 6.4 MG/DL (2.6-7.2) Calcium Level 8.6 MG/DL (8.5-10.1) Phosphorus Level 4.4 MG/DL (2.5-4.9) Magnesium Level 1.9 MG/DL (1.8-2.4) Total Bilirubin 0.3 MG/DL (0.2-1.0) Aspartate Amino Transf (AST/SGOT) 24 U/L (15-37) Alanine Aminotransferase (ALT/SGPT) 23 U/L (12-78) Alkaline Phosphatase 114 U/L (46-116) Pro-B-Type Natriuretic Peptide 86273 pg/mL (0-125) H Total Protein 6.8 G/DL (6.4-8.2) Albumin 3.0 G/DL (3.4-5.0) L Globulin 3.8 g/dL Albumin/Globulin Ratio 0.8 (1.0-2.7) L Thyroid Stimulating Hormone (TSH) 17.767 uiU/mL (0.358-3.740) Intake and Output 03/27/17 03/28/17 19:00 07:00 Intake Total 390 ml 240 ml Balance 390 ml 240 ml Intake Oral 390 ml 240 ml # Voids 2 # Bowel Movements 2 1 Objective General Appearance: WD/WN, no apparent distress, alert, obese EENT: PERRL/EOMI, normal ENT inspection Neck: non-tender, normal alignment, supple, normal inspection Cardiovascular: normal peripheral pulses, normal rate, regular rhythm, no gallop/murmur, no JVD Respiratory/Chest: chest wall non-tender, lungs clear, normal breath sounds, no respiratory distress, no accessory muscle use Abdomen: normal bowel sounds, non tender, soft, no organomegaly, no mass, abnormal bowel sounds Extremities: normal range of motion 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 Hemodialysis 03/26/17 (3) Diabetes mellitus, type II Assessment & Plan: continue novolog sliding scale and januvia. (4) Hypertension Assessment & Plan: Continue hydralazine (5) Anemia of renal disease (6) Secondary hyperparathyroidism (7) Atrial fibrillation Assessment & Plan: See cardiology consult. Troponin negative. (8) Cerebral vascular disease (9) Hypothyroidism (10) CHF (congestive heart failure) Assessment & Plan: Volume overload. LVEF=60-65%. Await cardiology consult. S /P hemodialysis 03/26/17 (11) Bradycardia Assessment & Plan: Resolved-See EP cardiology note. VALENTINA RESTREPO Mar 28, 2017 16:03
[2017-03-29] MEDS ORDERED: Levothyroxine 125mcg tab ORAL SCH (06:30)
--- NOTE | 2017-03-30 10:49 | Discharge Summary ---
Discharge Summary Hospital Course Date of Admission Mar 23, 2017 at 23:21 Date of Discharge Mar 28, 2017 at 17:15 Admitting Diagnosis ELOY Mota is a 71 year old female who was admitted on Mar 23, 2017 at 23:21 for Bradycardia,Hyperkalemia Hospital Course dc summary #[id number] Discharge Medications Continued Medications: Amlodipine Besylate (Norvasc) 5 Mg Tab 5 MG ORAL DAILY, TAB Aspirin Ec* (Aspirin Ec*) 81 Mg Tablet.dr 81 MG ORAL DAILY, TAB Clopidogrel Bisulfate* (Plavix*) 75 Mg Tablet 75 MG ORAL DAILY, TAB Sitagliptin* (Januvia*) 25 Mg Tablet 25 MG ORAL DAILY, TAB Discharge Condition Upon Discharge: stable Discharge Disposition Patient was discharged to Home (01) Discharge Diagnoses: Discharge Instructions Discharge Instructions Special Instructions I have been assigned to complete a D/C Summary on this account. I was not involved in the patient management Francine Camara NP ([place]) Mar 30, 2017 10:49
[2017-03-30] MEDS ORDERED: LEVOTHYROXINE125 MCG ORAL (10:51)
--- NOTE | 2017-03-31 | Discharge Summary ---
DATE OF ADMISSION: 03/23/2017 DATE OF DISCHARGE: 03/28/2017 REASON FOR ADMISSION: 71-year-old female with past medical history of end-stage renal disease, on hemodialysis, diabetes, hypertension, anemia, hypothyroidism, hyperparathyroidism, atrial fibrillation, CVA, was initially presented to [facility] due to syncopal episode at home. After workup in the [place] and ensuring that the patient was stable for transfer, the patient was transferred to [facility] for further management. The patient was admitted with diagnoses of syncopal episode, end-stage renal disease, diabetes, hypertension, anemia of chronic renal disease, hypothyroidism, hyperparathyroidism, atrial fibrillation, and cerebrovascular disease. HOSPITAL COURSE: The patient admitted. On admission, heart rate was in the 30-40 in the [place] and potassium was 6.2. Bradycardia resolved with hyperkalemia being treated. Coreg and amiodarone stopped. Bradycardia resolved. Bradycardia was likely secondary to combined effect of medications and hyperkalemia. Automobile Mechanic Motor and blade grader operator closely followed. Per javascript engineer, syncopal episode was possibly secondary to bradycardia. Patient with a history of atrial fibrillation. Apparently, she had a run of atrial flutter at [facility]. Per javascript engineer, no atrial fibrillation or atrial flutter was noted after that. If she develop atrial fibrillation or flutter and it would be persistent, she might need to be considered for pacemaker in future. Echocardiogram revealed preserved ejection fraction of 60% to 65%. Blood pressure was managed with calcium-channel olvin and hydralazine, doses titrated as needed to keep blood pressure under control. Statin was continued along with antiplatelet medication. DVT and GI prophylaxis provided. Men'S Locker Room Attendant followed. Hemodialysis done as per mailer apprentice. Volumes and cardio- renal parameters were closely monitored. Electrolytes corrected as per mailer apprentice. Blood sugar was managed with sliding scale of insulin. Hemoglobin A1c -6.7, at goal. Troponin was negative. No cardiac complaints. The patient was on telemetry floor throughout her admission. EKG revealed sinus bradycardia with premature atrial complexes, right bundle-branch block conduction defect, no significant ST-T wave abnormality. Troponin was negative. Laboratory workup was indicative of hypothyroidism, possibly contributing to bradycardia as well. Endocrinology consult was requested. Dose of levothyroxine was increased. The patient would need to check thyroid panel with primary medical doctor in three weeks as recommended by burr filer. Hemoglobin and hematocrit were closely monitored, remained stable. Anemia workup was consistent with anemia of chronic disease. Lipid panel revealed stable LDL and total cholesterol. Triglycerides -183. The patient was recommended to continue statin and was counseled on low-fat, low-cholesterol, diabetic, cardiac diet. The patient was stable for discharge home and followup with primary medical doctor as an outpatient. FINAL DIAGNOSES: 1. Syncopal episode (possibly secondary to bradycardia) . 2. Sinus bradycardia with premature complexes, resolved (likely due to Coreg and amiodarone-stopped and hyperkalemia). 3. Acute hyperkalemia, resolved. 4. Atrial fibrillation. 5. Diabetes mellitus. 6. Hypertension. 7. Hypothyroidism, uncontrolled. 8. Anemia of chronic disease. 9. Cerebrovascular disease with history of cerebrovascular accident. 10. End-stage renal disease, on hemodialysis. 11. Hypertension. 12. Obesity. 13. Hyperlipidemia. DISCHARGE MEDICATIONS: See medication reconciliation list. DISCHARGE INSTRUCTIONS: The patient discharged home. Follow up with primary medical doctor next week. Jethro Torre M.D. I have been assigned to dictate discharge summary on this account and I was not involved in the patient's management. Francine ZavalaLewis County General HospitalRadha N.P. DR: Elma JOB#: [id number] CC: KAYE
--- NOTE | 2017-04-02 09:51 | Physician Query ---
PLEASE COMPLETE THE DOCUMENT BEFORE SIGNING Dear Dr. TORRE Date: 04/02/17 Animal Laboratory Helper/CDS Name: ESTELA BELLAMYSONNY, [facility] Admission Date: 03/23/17 Discharge date: 03/28/17 Exercise your independent professional judgment when responding to query. Question asked do not imply a particular answer is desired/expected Clinical Documentation States: CHF (congestive heart failure) Assessment & Plan: Volume overload. LVEF=60-65%. Await cardiology consult. S /P hemodialysis 03/26/17 Dr. Laura Assessment:- Bradycardia, - Hyperkalemia- K 5.6, - CHF exacerbation Clinical Findings Show: echo : Left ventricular ejection fraction estimated to be 60-65%. No evidence of left ventricular hypertrophy BNP: 03/25/17 [id number], 03/26/17 33345, 03/28/17 38630 Diuretic: none Please Clarify CONGESTIVE HEART FAILURE: Acuity: [] Acute [] Chronic [] Acute on Chronic Type: [] Systolic [] Diastolic [] Systolic & Diastolic (Combined) [] Left Heart failure [] Other: Etiology: [] CHF due to Hypertension [] Cardiomyopathy [] Valvular Heart Disease [] Coronary Artery Disease [] Unable to determine [] Other: Condition Present on Admission: [ ] Yes [ ] No [ ] Clinically Undeterminable Please also document in your Progress Notes and/or Discharge Summary and indicate if the condition was present on admission. Jethro Torre M.D. Date [facility]
== END 2017-03-28 17:15 | disposition home or self-care (01) | DRG 308 ==
LOC: 2E 23:21
PROC: 5A1D70Z Performance of Urinary Filtration, Intermittent, Less than 6 Hours Per Day (ICD-10-PCS; principal; 2017-03-25)
PROC: 5A1D70Z Performance of Urinary Filtration, Intermittent, Less than 6 Hours Per Day (ICD-10-PCS; 2017-03-26)
DX: R00.1 Bradycardia, unspecified (principal); N18.6 End stage renal disease; I50.33 Acute on chronic diastolic (congestive) heart failure; N25.81 Secondary hyperparathyroidism of renal origin; E11.22 Type 2 diabetes mellitus with diabetic chronic kidney disease; I13.2 Hypertensive heart and chronic kidney disease with heart failure and with stage 5 chronic kidney disease, or end stage renal disease; E87.5 Hyperkalemia; I48.91 Unspecified atrial fibrillation; E03.9 Hypothyroidism, unspecified; D63.8 Anemia in other chronic diseases classified elsewhere; Z99.2 Dependence on renal dialysis; Z79.84 Long term (current) use of oral hypoglycemic drugs; I49.40 Unspecified premature depolarization; T44.7X5A Adverse effect of beta-adrenoreceptor antagonists, initial encounter; T46.2X5A Adverse effect of other antidysrhythmic drugs, initial encounter; Z86.73 Personal history of transient ischemic attack (TIA), and cerebral infarction without residual deficits; I45.10 Unspecified right bundle-branch block; E66.9 Obesity, unspecified; E78.5 Hyperlipidemia, unspecified; I25.10 Atherosclerotic heart disease of native coronary artery without angina pectoris; Z91.81 History of falling; Z79.02 Long term (current) use of antithrombotics/antiplatelets; I48.92 Unspecified atrial flutter; I67.9 Cerebrovascular disease, unspecified; Z68.39 Body mass index [BMI] 39.0-39.9, adult; Z79.82 Long term (current) use of aspirin
CPT/HCPCS: 36415; 70551; 71045; 80048; 80053; 80061; 82607; 82728; 82746; 82962; 83036; 83540; 83550; 83735; 83880; 84100; 84439; 84443; 84481; 84484; 84550; 85025; 86140; 87081; 93005; 93306; J1815